=== PATIENT | male | born 1985 | race Caucasian/White ===

== ENCOUNTER 2016-09-29 00:35 | Emergency (ER) | payer SELFPAY ==
--- NOTE | 2016-09-29 01:06 | EDPHY ---
H & P Stated Complaint: HEAVY ETOH DROPPED OFF BY FAMILY MEDICINE PHYSICIAN Source: Police, EMS Exam Limitations: Intoxication - Personal History Current Tetanus/Diphtheria Vaccine: Unsure Current Tetanus Diphtheria and Acellular Pertussis (TDAP): Unsure - Medical/Surgical History Other PMH: UNKNOWN Time Seen by Provider: 09/29/16 00:53 HPI/ROS: CHIEF COMPLAINT: Alcohol intoxication HISTORY OF PRESENT ILLNESS: The patient presents brought in by the supervisor fleshing for alcohol intoxication. Apparently he was [place] and he was hiding in a ditch. When the police went to go find him he drank 375 mL of hard alcohol immediately and has been acting quite intoxicated ever since. REVIEW OF SYSTEMS: Constitutional: No fever, no chills. Eyes:No visual changes. ENT: No sore throat. Respiratory: No cough, no shortness of breath. Cardiac: No chest pain. Gastrointestinal: No abdominal pain, vomiting or diarrhea. Genitourinary: No hematuria. Musculoskeletal: No back pain. Skin: No rashes. Neurological: No headache. PAST MEDICAL HISTORY: None PAST SURGICAL HISTORY: None SOCIAL HISTORY: Alcohol use PHYSICAL EXAM: General Appearance: Alert, well hydrated, appropriate, and non-toxic appearing. Head: Atraumatic without scalp tenderness or obvious injury Eyes: Pupils equal, round, reactive to light, no injection. Ears: Clear bilaterally, no perforation, normal landmarks Nose: Atraumatic, no rhinorrhea, clear. Throat: mucus membranes moist. Neck: Supple, non-tender, no lymphadenopathy. Respiratory: No retractions, no distress, no wheezes, and no accessory muscle use. Lungs are clear to auscultation bilaterally. Cardiovascular: Regular rate and rhythm, no murmurs, rubs, or gallops. Gastrointestinal: Abdomen is soft, non-tender, non-distended Musculoskeletal: Normal active ROM of all extremities, atraumatic. Neurological: Alert, appropriate, and interactive. Moves all extremities equally. Skin: No rashes, good turgor, no nodules on palpation. MEDICAL DECISION MAKING: I serially examined this patient since the patient's arrival here in the emergency department. The patient continues to become more and more sober with each examination. I serially questioned the patient and the patient's story given initially has not changed. The patient still denies any trauma, any head injury, and any illicit drug use. At this point, the patient is walking the department freely and is clinically sober. We're discharging the patient to the [facility] in stable condition. (Emma Garner) Constitutional: Initial Vital Signs Temperature (C) 36.5 C 09/29/16 00:35 Heart Rate 84 09/29/16 00:35 Respiratory Rate 18 09/29/16 00:35 Blood Pressure 131/91 H 09/29/16 00:35 O2 Sat (%) 89 L 09/29/16 00:35 O2 Delivery Mode Room Air O2 (L/minute) 2 Allergies/Adverse Reactions: Unable to Assess Allergy (Unverified 09/29/16 00:51) Home Medications: Medication Instructions Recorded Unobtainable 09/29/16 Medical Decision Making ED Course/Re-evaluation: The patient became agitated while in the emergency room, intermittently yelling and screaming, moving about in the gurney with concern that he may fall out of bed. He was given Versed 5 mg IM for this. He was able to sleep afterwards. We attempted to ambulate him at about 6:00 a.m. he was unable to. He was able to go to the bathroom, however needed assistance. He will be continually observed. (Emma Garner) 9:00 a.m.-the patient is awake and is able to walk with a steady gait. He is on an [facility] hold and will be transferred to the [facility]. (Anni Butts) Differential Diagnosis: This is a 31-year-old man who [place], apparently downed more alcohol as police approached him. He is now quite intoxicated though denies any medical complaints. Differential diagnosis includes alcohol intoxication, polysubstance abuse, less likely closed head injury given no signs of trauma. (Emma Garner) - Data Points Medications Given: Discontinued Medications Midazolam HCl (Versed) 5 mg IM EDNOW ONE Stop: 09/29/16 01:26 Last Admin: 09/29/16 01:26 Dose: 5 mg Departure - Departure Disposition: Home, Routine, Self-Care Clinical Impression: Alcoholic intoxication Qualifiers: Complication of substance-induced condition: with delirium Qualified Code(s): F10.121 - Alcohol abuse with intoxication delirium Condition: Good Instructions: Alcohol Intoxication (ED) Additional Instructions: Please return to the emergency room if you are worse in any way. Referrals: [facility] 24 Hours [Outside] - As per Instructions
[2016-09-29] MEDS ORDERED: MIDAZOLAM 2 MG/2 ML VIAL ONE (01:19)
[2016-09-29] MEDS ORDERED: MIDAZOLAM 2 MG/2 ML VIAL IM ONE (01:25)
[2016-09-29 09:10] VITALS: BP 108/67; PULSE 89; RESP 16; TEMP 97.9; O2SAT 92
== END 2016-09-29 10:00 | disposition home or self-care (01) ==
DX: F10.121 Alcohol abuse with intoxication delirium (principal)
CPT/HCPCS: J2250

== ENCOUNTER 2016-11-02 13:12 | Inpatient (IN) | payer MEDICAID, OTHER ==
--- NOTE | 2016-11-02 13:21 | EDPHY ---
H & P HPI/ROS: CHIEF COMPLAINT: Shortness of breath, cough. HISTORY OF PRESENT ILLNESS: The patient is a 31-year-old male who presents with shortness of breath over the last few days that worsened this morning. This morning he developed a cough with an episode of hemoptysis. He admits low- grade fever. He denies chest pain, abdominal pain, vomiting, diarrhea. He had blood work taken at the detention that showed an elevated d-dimer. He has been on Keflex for generalized scabbing/skin sores and was also given Levaquin today. He is referred to the emergency department for further evaluation. REVIEW OF SYSTEMS: A ten point review of systems was performed and is negative with the exception of the items mentioned in the HPI. Source: Patient Exam Limitations: No limitations - Medical/Surgical History PMH: Denies. Other PMH: UNKNOWN - Social History Smoking Status: Heavy smoker Alcohol Use: Other (History of alcohol abuse with no alcohol for the past 10 days) Additional Social History: 1. Smokes a pack of cigarettes per day. 2. Alcohol abuse. 3. He is currently incarcerated. - Physical Exam Exam: General Appearance: Alert. Vital signs reviewed. Heart rate 117. Oxygen saturation 89% on 4 L nasal cannula. Eyes: Pupils equal and round, no conjunctival injection, no discharge. Anicteric. ENT, Mouth: Mucous membranes are moist, no oropharyngeal erythema or edema. Neck: No lymphadenopathy, supple. Respiratory: Lungs are clear to auscultation; no wheezes, rales, or rhonchi. Cardiovascular: tachycardic; no murmur, rub, or gallop. Gastrointestinal: Abdomen is soft and nontender, no masses or organomegaly, bowel sounds normal. Skin: Warm and dry. Erythematous circular lesions with central scabbing on back , neck, both legs and both arms. No drainage. No fluctuance. Back: Nontender to palpation over the thoracolumbar spine. No CVAT. Extremities: No lower extremity edema, no calf tenderness or swelling. Neurological: Alert and oriented. Moving all four extremities easily and equally. Psychiatric: Normal affect. Constitutional: Initial Vital Signs Temperature (C) 37.2 C 11/02/16 13:23 Heart Rate 112 H 11/02/16 13:23 Respiratory Rate 19 11/02/16 13:23 Blood Pressure 145/113 H 11/02/16 13:23 O2 Sat (%) 89 L 11/02/16 13:23 O2 Delivery Mode Room Air O2 (L/minute) 6 Allergies/Adverse Reactions: Penicillins Allergy (Verified 11/02/16 13:22) Home Medications: Medication Instructions Recorded Cephalexin [Keflex (*)] 500 mg PO QID 11/02/16 Ibuprofen [Motrin (*)] 800 mg PO BID PRN 11/02/16 levOFLOXACIN [levAQUIN (*)] 500 mg PO DAILY 11/02/16 Medical Decision Making - Diagnostics Imaging: Imaging Impressions Chest/Thorax CTA 11/02/16 13:30 Impression: 1. No evidence of thrombopulmonary embolic disease. 2. Multifocal bilateral pneumonia more predominant in both lower lobes. Moderate bilateral pleural effusion. Underlying bronchitis. Results called and discussed with Germaine Montoya at 1435 hours 02 November 2016. ED Course/Re-evaluation: An IV was established and labs ordered. Chest CT ordered. It was my initial impression that he likely had pulmonary embolus with his presentation of tachycardia, hemoptysis, and hypoxia. 1433: CT results conveyed to me by Dr. Amaya as multi-focal pneumonia, no PE. Patient's oxygen saturation is 88% on 6L and he has been placed on Oxymizer. He does not meet sepsis criteria and blood cultures are not indicated. IV Cefepime and Vancomycin ordered. He had received a dose of oral Levaquin earlier today at the detention. I am concerned that his skin lesions might be MRSA. He has been taking Keflex for these lesions. I have chosen to use vancomycin out of concern for MRSA. I am also giving cefepime. He lists a penicillin allergy but has been successfully taking Keflex. He will require hospitalization because of his persistent hypoxia. Differential Diagnosis: Shortness of breath including but not limited to pulmonary infectious process, COPD, asthma, pulmonary embolus and congestive heart failure. - Data Points Laboratory Results: Laboratory Results 11/02/16 13:15 11/02/16 13:15 11/02/16 11/02/16 11/02/16 13:44 13:15 13:15 WBC 8.09 10^3/uL 10^3/uL (3.80-9.50) RBC 3.82 10^6/uL L 10^6/uL (4.40-6.38) Hgb 11.8 g/dL L g/dL (13.7-17.5) POC Hgb 10.5 gm/dL L gm/dL (14.5-17.3) Hct 36.9 % L % (40.0-51.0) POC Hct 31 % L % (42.8-50.6) MCV 96.6 fL fL (81.5-99.8) MCH 30.9 pg pg (27.9-34.1) MCHC 32.0 g/dL L g/dL (32.4-36.7) RDW 14.5 % % (11.5-15.2) Plt Count 304 10^3/uL 10^3/uL (150-400) MPV 9.6 fL fL (8.7-11.7) Neut % (Auto) 59.3 % % (39.3-74.2) Lymph % (Auto) 20.9 % % (15.0-45.0) [place] % (Auto) 14.5 % H % (4.5-13.0) Eos % (Auto) 2.7 % % (0.6-7.6) Baso % (Auto) 1.7 % % (0.3-1.7) Nucleat RBC Rel Count 0.0 % % (0.0-0.2) Absolute Neuts (auto) 4.80 10^3/uL 10^3/uL (1.70-6.50) Absolute Lymphs (auto) 1.69 10^3/uL 10^3/uL (1.00-3.00) Absolute Monos (auto) 1.17 10^3/uL H 10^3/uL (0.30-0.80) Absolute Eos (auto) 0.22 10^3/uL 10^3/uL (0.03-0.40) Absolute Basos (auto) 0.14 10^3/uL H 10^3/uL (0.02-0.10) Absolute Nucleated RBC 0.00 10^3/uL 10^3/uL (0-0.01) Immature Gran % 0.9 % % (0.0-1.1) Immature Gran # 0.07 10^3/uL 10^3/uL (0.00-0.10) POC Sodium 149 mEq/L H mEq/L (134-144) Sodium 145 mEq/L H mEq/L (134-144) POC Potassium 3.8 mEq/L mEq/L (3.3-5.0) Potassium 4.7 mEq/L mEq/L (3.5-5.2) POC Chloride 114 mEq/L H mEq/L (96-108) Chloride 112 mEq/L H mEq/L (97-110) Carbon Dioxide 25 mEq/l mEq/l (22-31) Anion Gap 8 mEq/L mEq/L (8-16) POC BUN 14 mg/dL mg/dL (7-23) BUN 14 mg/dL mg/dL (7-23) Creatinine 0.9 mg/dL mg/dL (0.7-1.3) POC Creatinine 0.7 mg/dL L mg/dL (0.8-1.5) Estimated GFR > 60 Glucose 91 mg/dL mg/dL (70-100) POC Glucose 78 mg/dL mg/dL (70-100) Calcium 8.3 mg/dL L mg/dL (8.5-10.4) Medications Given: Discontinued Medications Albuterol/Ipratropium (Duoneb) 3 ml IH EDNOW ONE Stop: 11/02/16 14:47 Last Admin: 11/02/16 15:10 Dose: 3 ml Vancomycin/Sodium Chloride (Vancomycin 1 Gm (Premix)) 250 mls @ 250 mls/hr IV EDNOW ONE PRN Reason: Protocol Stop: 11/02/16 15:43 Last Admin: 11/02/16 15:10 Dose: 250 mls Point of Care Test Results: 11/02/16 13:44 POC Sodium 149 H POC Potassium 3.8 POC Chloride 114 H POC BUN 14 POC Creatinine 0.7 L POC Glucose 78 Departure - Departure Disposition: [facility] Acute Clinical Impression: Pneumonia Qualifiers: Pneumonia type: due to unspecified organism Laterality: bilateral Lung location : unspecified part of lung Qualified Code(s): J18.9 - Pneumonia, unspecified organism Condition: Fair Report Scribed for: Germaine Montoya Report Scribed by: Ishmael Monroy Date of Report: 11/02/16 Time of Report: 13:30 Physician Review and Approval Statement: 11/02/16 13:21 Portions of this note were transcribed by the phlebotomist medical lab assistant. I, Dr. Germaine Montoya, personally performed the history, physical exam, and medical decision- making; and confirmed the accuracy of the information in the transcribed note.
[2016-11-02 13:35] LABS: % IMMATURE GRANULYOCYTES 0.9 % (0.0-1.1); ABSOLUTE IMMATURE GRANULOCYTES 0.07 10^3/uL (0.00-0.10); ADD DIFF? NO; ADD MORPH? NO; ADD SCAN? NO; ATYPICAL LYMPHOCYTE FLAG 20 (0-99); FRAGMENT RBC FLAG 0 (0-99); HEMATOCRIT 36.9 % (40.0-51.0); HEMOGLOBIN 11.8 g/dL (13.7-17.5); LEFT SHIFT FLG 0 (0-99); LIPEMIA HEMOLYSIS FLAG 80 (0-99); MEAN CELL HEMOGLOBIN 30.9 pg (27.9-34.1); MEAN CELL VOLUME 96.6 fL (81.5-99.8); MEAN PLATELET VOLUME 9.6 fL (8.7-11.7); PLATELET CLUMPS FLAG 10 (0-99); PLATELET COUNT 304 10^3/uL (150-400); RED BLOOD CELL COUNT 3.82 10^6/uL (4.40-6.38); RED CELL DISTRIBUTION WIDTH 14.5 % (11.5-15.2)
[2016-11-02] MEDS ORDERED: IOPAMIDOL (ISOVUE 370) 100 ML BTL IV ONE (13:56)
[2016-11-02 14:00] LABS: ANION GAP 8 mEq/L (8-16); CALCIUM 8.3 mg/dL (8.5-10.4); CARBON DIOXIDE 25 mEq/l (22-31); CHLORIDE 112 mEq/L (97-110); CREATININE 0.9 mg/dL (0.7-1.3); GLOMERULAR FILTRATION RATE > 60; GLUCOSE 91 mg/dL (70-100); POTASSIUM 4.7 mEq/L (3.5-5.2); SODIUM 145 mEq/L (134-144)
[2016-11-02] MEDS ORDERED: CEFEPIME HCL 1 GM in D5W 50 ML IV ONE (14:44)
[2016-11-02] MEDS ORDERED: VANCOMYCIN HCL/NORMAL SALINE 250 ML IV ONE (14:44)
[2016-11-02] MEDS ORDERED: IPRATROPIUM/ALBUTEROL 3 ML DEYVIAL IH ONE (14:46)
[2016-11-02] MEDS ORDERED: ALBUTEROL 60 PUFFS/8 GM MDI IH PRN (15:08)
[2016-11-02] MEDS ORDERED: ONDANSETRON DISINTEGRATING 4 MG TAB PO PRN (15:08)
[2016-11-02] MEDS ORDERED: NS 1,000 ML IV ONE ×2 (15:08→17:42)
[2016-11-02] MEDS ORDERED: AZITHROMYCIN IV 500 MG in D5W 250 ML IV SCH (15:30)
--- NOTE | 2016-11-02 16:16 | GHP ---
[f rep st] HISTORY AND PHYSICAL DATE OF ADMISSION: 11/02/2016 CHIEF COMPLAINT: Shortness of breath. HISTORY OF PRESENT ILLNESS: A 31-year-old male who has been incarcerated for the last 10 days who notes severe shortness of breath that has been progressive over the course of the preceding 72 hours. The patient reports that his baseline activity level is quite active with no limitations secondary to respiratory symptoms or chest pain. The patient noted 3 days ago in his cell feeling short of breath with little to no activity. This sensation did progress. He reports some cough that is productive intermittently of sputum. Then, the day of presentation, patient coughed up a lot of what he described as rosi blood, and decided to present for evaluation. He does endorse subjective fevers and chills. Denies any nausea or vomiting. Denies any diarrhea or changes in his bowel habits. Denies any dysuria, hematuria, lower extremity edema or known sick contacts. He does report he has a roommate who has been sticking a bar of soap in his sock and banging it against the wall as an ad hoc air freshener, and was not sure of the inhalation of soap particles could have contributed. PAST MEDICAL HISTORY: Alcohol abuse, severe. The patient has been sober for the last 10 days. SOCIAL HISTORY: Patient is currently incarcerated secondary to alcohol-related charges. Reports that he would drink multiple pints of whiskey a day when able. He smokes a pack of cigarettes a day. Denies any illicit drugs. Denies any history of IV drugs or known HIV risk factors. FAMILY HISTORY: Positive for Parkinson's in his grandfather and alcoholism in the majority of his family members. ADVANCED DIRECTIVES: Patient is full cor, full tube. REVIEW OF SYSTEMS: A 10-point review of systems is negative with the exception of that reported in the HPI. PHYSICAL EXAMINATION: VITAL SIGNS: Blood pressure 145/113, heart rate 112, respiratory rate 19, 89% on room air, 37.2. GENERAL: This is a healthy- appearing young male, sitting comfortably in bed. HEENT: Notable for moist mucous membranes. Eye exam is negative for any icterus. CARDIAC: Patient is regular rate and rhythm. PULMONARY: Has adequate respiratory effort and has rhonchi bilaterally, left mid lung field than right base. No wheezing is appreciated. GASTROINTESTINAL: Positive bowel sounds. ABDOMEN: Nontender in all 4 quadrants. MUSCULOSKELETAL: Negative for any lower extremity edema. SKIN: Patient is noted to have scattered pustular lesions, which appear to be follicle related. He reports these are new. He has been on antibiotics. PSYCHIATRIC: He is pleasant and cooperative on interview and examination. NEUROLOGIC: He is alert and oriented x3. DATA: White count 8.09, hematocrit 36.9, platelet count of 304. Sodium is 145 , creatinine 0.9, BUN 14, calcium 8.3. CTA of the chest, which I personally reviewed and interpreted, shows no thromboembolic disease. Multifocal bilateral pneumonia are noted in the lower lobes. ASSESSMENT AND PLAN: This is a 31-year-old male presenting with shortness of breath. 1. Presumed Community-acquired pneumonia. The patient is currently incarcerated, has no specific history concerning for immunosuppression, presenting with hypoxia, cough, and mild hemoptysis. Blood cultures have been sent from the emergency department. Will additionally send influenza and Legionella. Will empirically treat with azithromycin and ceftriaxone. 2. Acute hypoxic respiratory failure. The patient was first presenting with complaints of hemoptysis with concern for pulmonary embolism, which has been ruled out with a CTA. Will proceed with treatment for community-acquired pneumonia, additionally with scheduled DuoNeb and p.r.n. albuterol. 3. Sinus tachycardia. I suspect this is likely related to his acute illness. We will fluid resuscitate with normal saline and follow patient's heart rates. He is well outside the window of alcohol withdrawal, and will not place on CIWA protocol at this time. 4. Alcohol abuse. As above, the patient is actively incarcerated, has been away from alcohol consumption for greater than 10 days. There is minimal to no risk of acute withdrawal during this hospital stay. 5. Prophylaxis with Lovenox. 6. Diet: Regular. DISPOSITION: 1. I expect greater than 2 midnights. The patient is presenting quite hypoxic with hemoptysis. Will need IV antibiotics and stabilization prior to returning to the [facility]. 2. I have discussed the case with the emergency room physician. Patient will be triaged to the medical-surgical floor for care. /[id number]/MODL MTDD
[2016-11-02] MEDS: IPRATROPIUM/ALBUTEROL 3 ML DEYVIAL IH SCH ×2 (17:44→20:33)
[2016-11-02] MEDS: guaiFENesin/CODEINE PHOS 10 ML UDCUP PO PRN (19:30)
[2016-11-02] MEDS: ONDANSETRON 4 MG/2 ML VIAL IVP PRN (19:36)
[2016-11-02] MEDS: guaiFENesin 600 MG TAB.ER PO SCH (20:26)
[2016-11-02] MEDS: BENZONATATE 100 MG CAP PO PRN (20:59)
[2016-11-02] MEDS: ACETAMINOPHEN 325 MG TAB PO PRN (20:59)
[2016-11-02] MEDS: LORazepam 0.5 MG TAB PO PRN (20:59)
--- NOTE | 2016-11-02 22:26 | HOSPPROG ---
Hospitalist Progress Note Assessment/Plan: Called bedside for worsening oxygen saturations Patient admitted earlier with CAP on 2L -> 10L with persistent hemoptysis, worsening tachycardia HR 130's- SBP stable 130/60 Bilateral rhonchi and patient tachypneic on exam - will send AFB sputums, add HIV - transferring to ICU for higher level respiratory care - patient desires intubation if necessary - may need bronchoscopy to eval for DAH, pneumonitis (to aerosolized soap) and infectious etiologies - cont IVF fluids -continue vanc,cefepime, azithromycin I discussed the case with Dr. Purcell from pulmonary - we will continue with current treatment course and transfer to SDU > 30 minutes critical care time spent transferring and coordinating care Objective: Vital Signs Temp Pulse Resp BP Pulse Ox 37.1 C 132 H 20 139/100 H 90 L 11/02/16 20:18 11/02/16 20:18 11/02/16 20:18 11/02/16 20:18 11/02/16 20:18 11/01/16 11/02/16 11/03/16 05:59 05:59 05:59 Intake Total 581 Balance 581 ICD10 Worksheet Patient Problems: Problems Problem Status Onset Pneumonia Acute
[2016-11-02] MEDS ORDERED: NS 1,000 ML IV SCH (22:45)
[2016-11-02 23:24] LABS: % IMMATURE GRANULYOCYTES 0.7 % (0.0-1.1); ABSOLUTE IMMATURE GRANULOCYTES 0.08 10^3/uL (0.00-0.10); ADD DIFF? NO; ADD MORPH? NO; ADD SCAN? NO; ATYPICAL LYMPHOCYTE FLAG 10 (0-99); FRAGMENT RBC FLAG 0 (0-99); HEMATOCRIT 34.9 % (40.0-51.0); HEMOGLOBIN 11.2 g/dL (13.7-17.5); LEFT SHIFT FLG 0 (0-99); LIPEMIA HEMOLYSIS FLAG 80 (0-99); MEAN CELL HEMOGLOBIN 30.9 pg (27.9-34.1); MEAN CELL HEMOGLOBIN CONCENTR. 32.1 g/dL (32.4-36.7); MEAN CELL VOLUME 96.4 fL (81.5-99.8); MEAN PLATELET VOLUME 9.4 fL (8.7-11.7); PLATELET CLUMPS FLAG 10 (0-99); PLATELET COUNT 302 10^3/uL (150-400); RED BLOOD CELL COUNT 3.62 10^6/uL (4.40-6.38); RED CELL DISTRIBUTION WIDTH 14.6 % (11.5-15.2)
[2016-11-02 23:35] LABS: INR 1.15 (0.83-1.16); PROTIME(PATIENT) 14.7 SEC (12.0-15.0)
[2016-11-02 23:36] LABS: APTT 27.4 SEC (23.0-38.0)
[2016-11-03] MEDS: VANCOMYCIN 1.25 GM in D5W 250 ML IV SCH ×3 (00:09→23:25)
[2016-11-03] MEDS: CEFEPIME HCL 2 GM in D5W 100 ML IV SCH ×3 (01:05→17:13)
[2016-11-03] MEDS: LORazepam 0.5 MG TAB PO PRN ×4 (02:09→20:38)
[2016-11-03] MEDS: guaiFENesin/CODEINE PHOS 10 ML UDCUP PO PRN (03:14)
[2016-11-03 03:56] LABS: BASE EXCESS -5.8 mEq/L (-2.5-2.5); BICARBONATE 19 mEq/L (22-26); MEASURED OXYGEN SATURATION 91 % (92-95); PCO2 35 mmHg (34-38); PO2 70 mmHg (65-75); TCO2 20 mEq/L (23-27)
[2016-11-03 03:57] LABS: BIPAP YES; EXP PRESSURE 8; INSP PRESSURE 15; O2 CONCENTRATIION 60 % (0-100); P/F RATIO 117 RATIO
[2016-11-03 04:22] LABS: % IMMATURE GRANULYOCYTES 0.5 % (0.0-1.1); ABSOLUTE IMMATURE GRANULOCYTES 0.07 10^3/uL (0.00-0.10); ADD DIFF? NO; ADD MORPH? NO; ADD SCAN? NO; ATYPICAL LYMPHOCYTE FLAG 0 (0-99); FRAGMENT RBC FLAG 0 (0-99); HEMATOCRIT 37.2 % (40.0-51.0); HEMOGLOBIN 11.9 g/dL (13.7-17.5); LEFT SHIFT FLG 0 (0-99); LIPEMIA HEMOLYSIS FLAG 80 (0-99); MEAN CELL HEMOGLOBIN 31.1 pg (27.9-34.1); MEAN CELL VOLUME 97.1 fL (81.5-99.8); MEAN PLATELET VOLUME 9.4 fL (8.7-11.7); PLATELET CLUMPS FLAG 20 (0-99); PLATELET COUNT 318 10^3/uL (150-400); RED BLOOD CELL COUNT 3.83 10^6/uL (4.40-6.38); RED CELL DISTRIBUTION WIDTH 14.6 % (11.5-15.2)
[2016-11-03 04:35] LABS: ANION GAP 9 mEq/L (8-16); CALCIUM 7.7 mg/dL (8.5-10.4); CARBON DIOXIDE 20 mEq/l (22-31); CHLORIDE 115 mEq/L (97-110); CREATININE 0.8 mg/dL (0.7-1.3); GLOMERULAR FILTRATION RATE > 60; GLUCOSE 94 mg/dL (70-100); POTASSIUM 4.6 mEq/L (3.5-5.2); SODIUM 144 mEq/L (134-144)
[2016-11-03] MEDS: IPRATROPIUM/ALBUTEROL 3 ML DEYVIAL IH SCH ×4 (05:24→21:01)
[2016-11-03] MEDS: guaiFENesin 600 MG TAB.ER PO SCH ×2 (08:18→20:38)
[2016-11-03] MEDS: AZITHROMYCIN IV 500 MG in D5W 250 ML IV SCH (08:18)
[2016-11-03] MEDS: ENOXAPARIN 40 MG/0.4 ML SYR SC SCH (08:18)
[2016-11-03] MEDS ORDERED: methylPREDNISolone SOD SUCC 125 MG/2 ML VIAL IVP ONE (11:24)
[2016-11-03 12:19] LABS: HEMATOCRIT 37.5 % (40.0-51.0)
[2016-11-03] MEDS: ONDANSETRON 4 MG/2 ML VIAL IVP PRN (12:19)
[2016-11-03] MEDS: ACETAMINOPHEN 325 MG TAB PO PRN (12:26)
--- NOTE | 2016-11-03 12:29 | GCON ---
[f rep st] CONSULTATION PULMONARY CONSULTATION. DATE OF CONSULTATION: 11/03/2016 REASON FOR CONSULTATION: Bilateral diffuse pneumonia, shortness of breath, hypoxemia. This is asso ciated with hemoptysis. HISTORY: The patient is a 31-year-old gentleman, who has a history of alcoholism and homelessness. He has been in the senior care for the last 10 days. Approximately 3 days ago he began to have cough with gradually increasing shortness of breath. Yesterday his symptoms were increased, and he started br inging up some blood. Colored sputum apparently has also been present. The patient was seen by the nurse at the senior care, and was sent to the hospital for further evaluation. He denies other medical problems. He has no underlying illnesses. He has had a skin rash, primaril y over his lower extremities. He has had no blood in his urine. He has no history of aspiration. He had a roommate in the senior care who was placing a bar of soap in a sock and hitting it against the wal l as a "air freshener." PAST MEDICAL HISTORY: Alcoholism. Obviously, no alcohol over the last 10 days while he has been in senior care. SOCIAL HISTORY: The patient drinks pints of whiskey per day. He smokes half a pack to a pack of ci garettes per day. He denies drug use. FAMILY HISTORY: Positive for alcoholism. REVIEW OF SYSTEMS: Negative, except as mentioned above. He denies heart disease. He denies any ot her exposures. There is no history of thromboembolic disease. ALLERGIES: Drug allergies, penicillins. PHYSICAL EXAMINATION: GENERAL: Reveals a well-appearing young man with mild respiratory distress. He is alternating between a BiPAP mask at 70%, and an oxy mask. VITAL SIGNS: Blood pressure is 14 0/100, heart rate 120 with sinus tachycardia on the monitor. Oxygen saturations are in the high 90s . Respiratory rate is 35. He is afebrile, and has been afebrile since admission, with a maximum te mperature of 37.3. He is bringing up some rick-colored mucus and spitting this into a cup. HEENT: Remarkable for the BiPAP mask being in place. There is no obvious thyromegaly or lymphadenopathy. Mucous membranes are moist. There was no jugular venous distention. CHEST: Reveals decreased br eath sounds and air exchange bilaterally with bilateral rales, and some central bronchial congestion with rhonchi with cough. There may be a few expiratory wheezes but he is not "tight." He is using accessory muscles mildly. HEART: Tachycardic. There is a soft systolic murmur, no obvious gallop s. P2 is difficult to appreciate. ABDOMEN: Soft, nontender. Bowel sounds are present. EXTREMITI ES: Unremarkable for edema, cords, or tenderness. SKIN: Over the lower extremities is remarkable for a now healed, dried area of rash or excoriation bilaterally, right greater than left. There is no associated erythema or cellulitis. NEUROLOGIC: Intact. He moves all extremities equally. Cogn ition appears to be intact. LABORATORY DATA: A CTA on admission showed no evidence of pulmonary embolic disease. There is bila teral patchy consolidation in the lower lobes primarily on that scan, associated with small to moder ate pleural effusions. Bronchial wall thickening is noted. There are some reactive-appearing lymph nodes centrally. A chest x-ray is consistent with the above, but appears to have progressed since admission somewhat. Today's film shows poor inspiratory efforts. Laboratory: White blood cell count is 12,900, hematocrit 37, platelets 318,000. PT and PTT were no rmal on admission. Venous lactate on admission was 1.9. Arterial blood gas today shows a pH of 7.3 5, pCO2 of 35, and a pO2 of 70, with 91% saturation on 60% BiPAP. Sodium is 144, potassium 4.6, CO2 of 20, BUN 13 with a creatinine of 0.8. Glucose is 94, calcium 7.7. Influenza A/B by DFA is negat gael. HIV is negative. Urine Legionella is pending. Sputum culture has been obtained. White blood cells, epithelial cells, gram-positive cocci and gram-negative rods are all present. A mycobacteri al smear was obtained, and is pending. Blood cultures are pending. ASSESSMENT: 1. Bilateral pneumonia. This is associated with acute respiratory failure, hypoxemia, tachypnea, a nd is associated with hemoptysis. Radiologic studies show a patchy, bilateral nodular consolidative infiltrate that is somewhat atypical. Community-acquired pneumonia is most likely, with the bloody sputum/hemoptysis. Pneumococcus is certainly possible. A streptococcal urinary antigen will be or dered. Other etiologies of diffuse pulmonary infiltrates associated with hemoptysis need to be cons idered, but are less likely. These would include Jayne's, Goodpasture's, lupus, etceteras. Serol ogies will be ordered. A urinalysis will be ordered. He is currently on broad-spectrum antibiotics . These include azithromycin, cefepime, and vancomycin. He is getting bronchodilator nebulized xiomy atments. He is being ruled out for tuberculosis. This seems unlikely. Steroids may be of benefit. My feeling is that at present he is too sick, tachypneic, and hypoxemic to perform a bronchoscopy safely. If he ends up progressing and needing to be intubated, this can be done at that time. If h e continues to progress and tissue evaluation is needed lung biopsies by VATS would probably be need ed, as opposed to transbronchial biopsies. 2. History of alcoholism. He has not had any alcohol for 10 days. He is at no risk for withdrawal at this point in time. 3. History of tobacco abuse. 4. Metabolic: No significant issues identified. 5. Deep venous thrombosis prophylaxis: On enoxaparin. 6. Gastrointestinal prophylaxis: Not necessarily needed as he is eating, however, I anticipate ora l intake to be limited, because steroids will be initiated and he has a history of alcoholism Pepcid will be started. PLAN/RECOMMENDATIONS: Please see the comments above. He will be supported in the intensive care un it, respiratory status will be followed closely. Chest x-ray and blood gases will be followed, mikey g with routine laboratory values. If he deteriorates, he would require intubation. Bronchoscopy wo uld be done at that time. Current antibiotics will be continued. Bronchodilator therapy will be co ntinued. Sputum culture and AFB smears will be awaited. Steroids will be added. Multiple serologi es for diagnoses other than pneumonia will be obtained. Further plans and recommendations will be rachel grant based on his progress over the next 12 to 24 hours. /[id number]/MODL
--- NOTE | 2016-11-03 15:58 | HOSPPROG ---
Hospitalist Progress Note Assessment/Plan: * Acute respiratory failure - high risk for needing intubation * Bilateral PNA with hemoptysis -Cefepime, azithro, IV Vanco -r/o TB - AFB pending * Tobacco dependence - patch * Etoh dependence -no Etoh for 10 days as in prison Subjective: very sob Objective: Vital Signs Temp Pulse Resp BP Pulse Ox 36.9 C 118 H 31 H 122/94 H 87 L 11/03/16 08:00 11/03/16 14:25 11/03/16 14:25 11/03/16 14:25 11/03/16 14:25 Microbiology 11/03/16 02:03 - Final Sputum, Expectorated Laboratory Results 11/03/16 12:06 11/03/16 04:15 11/02/16 11/03/16 11/04/16 05:59 05:59 05:59 Intake Total 1831 Output Total 500 Balance 1331 PT 14.7 SEC (12.0-15.0) 11/02/16 23:15 INR 1.15 (0.83-1.16) 11/02/16 23:15 d/w Austyn Purcell - also ruling out autoimmune/ILD CXR viewed, my personal interpretation is - bilateral infiltrates - severe - Physical Exam Constitutional: uncomfortable, No no apparent distress (resp distress), No chronically ill appearing, No obese Cardiovascular: no murmur, rub, or gallop, tachycardia, No JVD, No edema Respiratory: inspiratory crackles, respiratory distress, No expiratory wheeze, No rhonchi Gastrointestinal: normoactive bowel sounds, soft, non-tender abdomen, no palpable masses Skin: no rashes or abrasions, no fluctuance, no induration Neurologic: AAOx3, sensation intact bilaterally Psychiatric: interacting appropriately, not anxious, not encephalopathic, thought process linear ICD10 Worksheet Patient Problems: Problems Problem Status Onset Pneumonia Acute
[2016-11-03 16:09] LABS: COLOR YELLOW; LEUKOCYTE ESTERASE,URINE NEGATIVE (NEGATIVE); NITRITE,URINE NEGATIVE (NEGATIVE)
[2016-11-03 16:18] LABS: BACTERIA TRACE /hpf (NONE SEEN); MUCUS 2+ /lpf (NONE-1+)
[2016-11-03 16:22] LABS: HYALINE CASTS >182 /lpf (0-1)
[2016-11-03] MEDS: methylPREDNISolone SOD SUCC 40 MG/ML VIAL IVP SCH (21:10)
[2016-11-04] MEDS: CEFEPIME HCL 2 GM in D5W 100 ML IV SCH ×4 (00:55→23:59)
[2016-11-04] MEDS: LORazepam 0.5 MG TAB PO PRN ×4 (01:11→21:19)
[2016-11-04 04:46] LABS: % IMMATURE GRANULYOCYTES 0.5 % (0.0-1.1); ABSOLUTE IMMATURE GRANULOCYTES 0.08 10^3/uL (0.00-0.10); ADD DIFF? NO; ADD MORPH? NO; ADD SCAN? NO; ATYPICAL LYMPHOCYTE FLAG 0 (0-99); FRAGMENT RBC FLAG 0 (0-99); HEMATOCRIT 33.8 % (40.0-51.0); HEMOGLOBIN 11.1 g/dL (13.7-17.5); LEFT SHIFT FLG 10 (0-99); LIPEMIA HEMOLYSIS FLAG 80 (0-99); MEAN CELL HEMOGLOBIN 30.9 pg (27.9-34.1); MEAN CELL HEMOGLOBIN CONCENTR. 32.8 g/dL (32.4-36.7); MEAN CELL VOLUME 94.2 fL (81.5-99.8); MEAN PLATELET VOLUME 9.9 fL (8.7-11.7); PLATELET CLUMPS FLAG 0 (0-99); PLATELET COUNT 326 10^3/uL (150-400); RED BLOOD CELL COUNT 3.59 10^6/uL (4.40-6.38)
[2016-11-04 04:52] LABS: ANION GAP 6 mEq/L (8-16); CALCIUM 8.1 mg/dL (8.5-10.4); CARBON DIOXIDE 20 mEq/l (22-31); CHLORIDE 112 mEq/L (97-110); CREATININE 0.7 mg/dL (0.7-1.3); GLOMERULAR FILTRATION RATE > 60; GLUCOSE 132 mg/dL (70-100); POTASSIUM 4.8 mEq/L (3.5-5.2); SODIUM 138 mEq/L (134-144)
[2016-11-04] MEDS: IPRATROPIUM/ALBUTEROL 3 ML DEYVIAL IH SCH ×4 (05:24→21:23)
[2016-11-04 05:27] LABS: BASE EXCESS -2.8 mEq/L (-2.5-2.5); BICARBONATE 21 mEq/L (22-26); BIPAP YES; EXP PRESSURE 5; INSP PRESSURE 15; MEASURED OXYGEN SATURATION 96 % (92-95); PCO2 35 mmHg (34-38); PO2 85 mmHg (65-75); TCO2 22 mEq/L (23-27)
[2016-11-04 05:28] LABS: O2 CONCENTRATIION 80 % (0-100); P/F RATIO 106 RATIO
[2016-11-04] MEDS: guaiFENesin 600 MG TAB.ER PO SCH ×2 (08:42→21:19)
[2016-11-04] MEDS: ENOXAPARIN 40 MG/0.4 ML SYR SC SCH (08:42)
[2016-11-04] MEDS: methylPREDNISolone SOD SUCC 40 MG/ML VIAL IVP SCH ×2 (08:42→21:20)
[2016-11-04] MEDS: NICOTINE 21 MG/24 HR PATCH TD SCH (08:54)
[2016-11-04] MEDS: AZITHROMYCIN IV 500 MG in D5W 250 ML IV SCH (09:08)
--- NOTE | 2016-11-04 10:11 | GCON ---
[f rep st] CONSULTATION INFECTIOUS DISEASE CONSULT. REFERRING PHYSICIAN: Janet Cole MD REASON FOR CONSULT: Assist in management of this 31-year-old male with pneumonia and hemoptysis. HISTORY OF PRESENT ILLNESS: Please note, the history was obtained from the patient and the chart. The patient is a 31-year-old gentleman, whose previous medical history is notable for the followin. Tobacco use disorder: The patient states that he has been a smoker, less than 1 pack per day for the past 10 years. 2. Alcohol abuse, severe. The patient states he has been an alcoholic for the past 10 years as well, and drinks whiskey. He states that alcoholism runs in his family. 3. History of pustular pruritic skin lesions on his scalp, hands, elbow, and pretibial areas as well as his feet, that started perhaps 10 days to 2 weeks ago. The patient states that these lesions were extremely pruritic. He reports presenting to our emergency room for this rash, but I can find no history of this in our computer system. He was given what sounds to me like Keflex 500 mg 4 times daily, and was on this up to the day of admission. The patient states that he has been staying at his grandmother's house intermittently, and he is concerned that there are bed bugs at her home. He has never had a rash like this before. Of note, the patient had no lesions in his mouth or genitourinary area. Regarding his present issues, the patient states that he has been incarcerated on an off 5 times over the past several months. The patient has been incarcerated for approximately 10 days prior to admission. He was feeling like his usual self other than the skin lesions, for which he was taking antibiotics , and was doing reasonably well until 3 days prior to admission when he developed a fairly sudden onset of shortness of breath, cough, and sputum that was blood-tinged. On the day of admission the patient reported coughing up a fair amount of "rosi blood" and he was brought in by the half-way to our emergency department for further evaluation and treatment. There is no report or history of aspiration. Of note, the patient was on Keflex prior to admission and was also given a dose of levofloxacin, therefore the patient was on antibiotics when blood cultures were drawn. In our emergency department the patient had a temperature of 37.2, with an oxygen saturation of 89%, blood pressure 145/113. A CT of the chest with contrast showed no evidence of PE. He was found to have "multifocal bilateral pneumonia, more prominent in the lower lobes, with moderate bilateral pleural effusions." I reviewed the CT scan with Dr. Joe this morning. There is no evidence of cavitary disease or hilar adenopathy per se, to suggest a necrotizing process such as pneumonia, lung abscess, or other at this time. The patient was admitted and started on ceftriaxone and azithromycin. Unfortunately from a respiratory standpoint he continued to deteriorate with increasing oxygen requirements. His antibiotics were then modified to vancomycin, cefepime and azithromycin. He is presently on BiPAP. I am now asked to assist in his management. Chest x-rays show progression of pneumonia with worsening left pleural effusion. Of note, the patient was started on Solu- Medrol last evening. His blood pressure has remained stable. In speaking with the patient today, he denies any antecedent weight loss, and states that he has been gaining weight in half-way. He denies drenching night sweats or anorexia. Since he has been short of breath he has had a headache, but no sore throat, no significant nasal congestion. He denies chest pain, or pain with inspiration, although he does feel that his lungs "burn." He denies any abdominal pain, nausea, vomiting, diarrhea, gross hematuria, blood in his stool or black tarry stools. Skin lesions are as outlined above. No pain in his joints, large or small. No visual disturbance, blurred vision or double vision. He has not been confused. PAST MEDICAL HISTORY: Previous medical history is as outlined above. The patient states he received all of his childhood vaccinations. MEDICATIONS: Prior to admission are unclear, but are notable per report of the patient and the core composer machine tender for Keflex 500 mg p.o. four times daily, and the patient also received a dose of levofloxacin. ALLERGIES: Penicillin. The patient states that his throat "swelled up" when he was a child. MEDICATIONS: Include vancomycin 1.25 g IV q.12 hours, Solu-Medrol 40 mg IV q.12 hours, cefepime 2 g IV q.8 hours, azithromycin 500 mg IV daily, DuoNeb, Mucinex, Robitussin, Ativan p.r.n. SOCIAL HISTORY: The patient was born and raised in [place]. The patient was in the [employer] for 4 years, where he was stationed in [place], [place] , and [place], [place], and "all over [place]." He never served overseas, and states that he was discharged honorably in 2009. 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 He has never lived anywhere other than outlined above. Again, he has never lived overseas. No history of contact with anyone with tuberculosis that he is aware of. Unfortunately, the patient since he has been an alcoholic, has been mostly homeless, but has also been living with his grandmother in [place] intermittently. He was living with her for a week, perhaps 2 weeks or 3 weeks prior to admission. Otherwise, the patient states he has been sleeping wherever he can find a place. He has not been in a [facility]. He states that his grandmother lives in a trailer. He states that although there are mice there he has not seen them, he has not seen any droppings, and has not been cleaning out enclosed spaces per se. He has had no other ill contacts. No travel within or outside the [facility], as outlined above. He is intermittently sexually active with women. No history of sexually transmitted infections. His HIV test here was negative. He drinks and smokes as outlined above, but night denies any illicit substances otherwise. He states he has never used intravenous drugs. He does not smoke marijuana. FAMILY HISTORY: Notable for Parkinson's. REVIEW OF SYSTEMS: As outlined above, otherwise 10 systems are reviewed and are negative. Of note, the patient also denies any fevers or shaking chills prior to admission. PHYSICAL EXAM: VITAL SIGNS: T current is 37.1, T-max 37.3, heart rate 112, blood pressure 127/94, 93% on BiPAP at 80% FiO2. GENERAL: A well-nourished, well-developed gentleman lying in bed, mild respiratory distress, with the BiPAP machine on. HEENT: Atraumatic, normocephalic. Pupils equal, round, reactive to light. Extraocular movements are intact. No conjunctival injection , no icterus, no petechiae. No sinus process tenderness or discharge from the nares. Mucous membranes are moist. No oral lesions noted. Dentition in fair repair. NECK: No cervical or supraclavicular adenopathy. Trachea is midline. No thyromegaly or palpable thyroid nodules. CARDIOVASCULAR: Tachycardiac, S1 and S2. No rubs gallops or murmurs audible, although difficult exam secondary to adventitious sounds. LUNGS: Increased respiratory effort. His lungs are notable for no audible breath sounds at the left base. Right lung field is diminished with a few crackles, no please. Left upper lobe is fairly clear, no rubs. ABDOMEN: Soft. No organomegaly or tenderness to palpation. GENITOURINARY: Exam not performed. EXTREMITIES: No clubbing, cyanosis, or edema. No muscle belly tenderness. SKIN: Notable for resolving pustular lesions with some surrounding skin exfoliation. There is some surrounding redness/brawny discoloration of the skin , but no active cellulitis. The pustular component of these lesions has resolved, they continue to be pruritic. He has some lesions at the nape of his neck and on his scalp posteriorly, right elbow, pretibial areas of the lower extremities and feet, but none on his chest, back, or genitourinary area per the patient. He does have some exfoliation of the skin on his right thumb. NEUROLOGIC: He is alert and oriented x3, he is moving all 4 extremities, no focal deficits. LABORATORY DATA: White blood cell count of 17.2 today, up from 12.9 early this morning, although the patient was started on Solu-Medrol last evening. Hematocrit of 34, platelet count of 326, 86% neutrophils. There is no evidence of atypical lymphocytosis, ESR of 48, INR of 1.15, PTT of 27, BUN and creatinine 14/0.7. No liver function tests have been obtained. C-reactive protein of 59.7, Dwain level is pending. Vanco trough last evening was 9.0, vasculitis studies are pending. HIV antibody testing negative, influenza A and B PCR negative. Urine Legionella antigen pending, respiratory viral PCR pending. Urine pneumococcal antigen pending. Microbiologic data: Blood cultures x2 on November 02, 2016 show no growth (please note these were drawn after the patient received a dose of levofloxacin and had been on Keflex). Sputum AFB x1 on November 02, 2016 is negative. Sputum culture yesterday showed 2+ PMN's, 1+ gram-positive cocci, 1+ gram-positive rods, rare gram-negative rods, culture is pending. RADIOGRAPHIC DATA: As outlined above, chest x-ray this morning, that I also reviewed with Dr. Joe, shows worsening bilateral infiltrates particularly in the right upper lobe and left lower lobe with worsening pleural effusion in the left lower lobe. IMPRESSION: 31-year-old homeless alcoholic gentleman with tobacco use disorder, who presents with bilateral pneumonia and history of hemoptysis. Chest CT notable for bilateral infiltrates and worsening left-sided effusion without evidence of cavitary disease or adenopathy. Differential diagnosis includes common pathogens such as pneumococcus, as well as additional pathogens that can cause a necrotizing pneumonia, such as gram-negative organisms, including Pseudomonas , drug resistant pneumococcus, and MRSA in the setting of his homelessness and alcoholism. Notably, the patient is human immunodeficiency virus negative. Fungal pathogens, tuberculosis, and more sinister pathogens such as hantavirus seem unlikely. Atypical pathogens such as Legionellosis are also in the differential. He has no other significant exposure history. Although a vasculitis workup has been initiated, an infectious etiology seems most likely. PLAN: 1. I agree with present antibiotics in the form of Vancomycin, cefepime and azithromycin but will increase vancomycin dose in the setting of pneumonia. Hopefully we will be able to taper antibiotics once the patient shows significant clinical improvement and/or culpable pathogen recovered. 2. Swab nares for MRSA. 3. Add mycoplasma serologies. 4. The patient is presently being ruled out for tuberculosis; I have added on an AFB smear to the patient's sputum culture yesterday, therefore he will only need one additional AFB today. Hopefully we can get him out of airborne precautions in short order. 5. HIV testing has been done and is negative; this was conveyed to the patient. 6. Regarding the skin lesions on his legs and exposed areas, query secondarily infected bed bug bites versus other. These do not seem consistent with a vasculitic process such as palpable purpura , and do not look like metastatic skin lesions from a bloodstream infection, or stigmata of endocarditis. The patient has no genitourinary or oral lesions. No further treatment at this point in time. 7. Urine Legionella antigen pending. 8. Of note, suspect he will need a thoracentesis moving forward in the setting of developing parapneumonic effusion on the left side. 9. Blood cultures are pending, although these are less likely to be helpful in the setting of antecedent antibiotics in the form of levofloxacin as well as Keflex. 10. Respiratory viral PCR pending. Thank you very much for consulting Infectious Diseases. We will continue to follow this patient with you. /[id number]/MODL MTDD
[2016-11-04 10:36] LABS: ALANINE AMINOTRANSFERASE 45 IU/L (21-72); ALBUMIN 2.7 g/dL (3.5-5.0); ALKALINE PHOSPHATASE 68 IU/L (38-126); ASPARTATE AMINOTRANSFERASE 29 IU/L (17-59); BILIRUBIN,TOTAL 0.5 mg/dL (0.1-1.4); BILIRUBIN-CONJUGATED 0.4 mg/dL (0.0-0.5); BILIRUBIN-UNCONJUGATED 0.1 mg/dL (0.0-1.1); TOTAL PROTEIN 6.4 g/dL (6.3-8.2)
[2016-11-04] MEDS: VANCOMYCIN 1.25 GM in D5W 250 ML IV SCH ×2 (10:46→17:15)
--- NOTE | 2016-11-04 12:42 | PDINTPN ---
Construction Executive Progress Note Assessment/Plan: Assessment: Severe bilateral community-acquired pneumonia admitted 11/02, associated with hypoxemia, acute respiratory failure, and hemoptysis. Cultures negative and probably will remain negative as he was on antibiotics prior to his admission. Multiple serologies for causative infections agents and inflammatory etiologies are pending. Arterial blood gas with BiPAP is stable, not worse today. Chest x -ray perhaps slightly worse but clinically he is better. There is an associated increased right-sided effusion, probably parapneumonic. Will tap today. On broad-spectrum antibiotics and empiric steroids. Acute respiratory failure: Secondary to 1. He has been intermittently on BiPAP , now on Vapotherm. Improved today, no longer struggling or complaining of severe dyspnea. History of alcoholism. In skilled nursing for 10 days prior to admission to [facility]. No risk for withdrawal. Remains under police surveillance. History of tobacco abuse: No evidence of COPD or asthma. On bronchodilators. Skin rash: Multiple lesions, mostly dry, without significant erythema or cellulitis. Periodic initially. Has been on Keflex for these as an outpatient. Etiology is unclear. He wonders about bed bugs. I do not believe that they are related to his pulmonary issues. DVT prophylaxis: Enoxaparin GI prophylaxis: Eating Plan: Continue care in the intensive care unit. Continue IV fluids, IV antibiotics, steroids, and bronchodilators. Encourage expectoration. Follow chest x-ray, laboratory, blood gas if needed. Continue present management otherwise. I will have ultrasound denny his pleural effusion on the right. If large enough, will perform thoracentesis today and sent for appropriate studies. All the above discussed with nursing, respiratory therapy, hospitalist, and the ICU multi disciplinary team. 40 minutes of clinic time spent directly with the patient, not including thoracentesis. Subjective: Feels a little bit better today. Coughing up less blood and mucus. No chest pain. Remains short of breath. Was on BiPAP earlier, Vapotherm now Objective: Vital Signs Temp Pulse Resp BP Pulse Ox 37.2 C 119 H 22 H 136/105 H 100 11/04/16 12:00 11/04/16 12:00 11/04/16 12:00 11/04/16 12:00 11/04/16 12:00 Microbiology 11/03/16 02:03 - Final Sputum, Expectorated 11/02/16 23:10 Mycobacterial Smear (ML) - Final Sputum, Expectorated Laboratory Results 11/04/16 04:30 11/04/16 04:30 11/03/16 11/04/16 11/05/16 05:59 05:59 05:59 Intake Total 1831 2082 Output Total 500 800 Balance 1331 1282 PT 14.7 SEC (12.0-15.0) 11/02/16 23:15 INR 1.15 (0.83-1.16) 11/02/16 23:15 Laboratory Tests 11/03/16 11/04/16 11/04/16 17:50 04:30 04:30 pCO2 pO2 ABG pH O2 Concentration % Expiratory Pressure Inspiratory Pressure Mode BiPAP Calcium 8.1 L Total Bilirubin 0.5 AST 29 ALT 45 Albumin 2.7 L Influenza A & B (PCR) NEGATIVE FOR FLU 11/04/16 05:20 pCO2 35 pO2 85 H ABG pH 7.40 O2 Concentration % 80 Expiratory Pressure 5 Inspiratory Pressure 15 Mode BiPAP YES Calcium Total Bilirubin AST ALT Albumin Influenza A & B (PCR) CXR: Similar pattern, perhaps slightly worse. More hypoventilatory changes are present however. Effusion appears to be larger on the right. Physical Exam - Physical Exam General Appearance: alert, no apparent distress (Breathing more comfortably compared to yesterday), thin (Somewhat thin) EENT: PERRL/EOMI, other (Vapotherm in place) Neck: normal inspection (No JVD) Respiratory: decreased breath sounds, rales (Present bilaterally, predominantly at the bases), rhonchi (Present centrally with cough), other (Bronchial sounds present), No wheezing Cardiac/Chest: tachycardia (Sinus, approximately 120) Abdomen: normal bowel sounds, non-tender, soft Male Genitalia: other Skin: warm/dry, rash (Patchy areas of maculopapular dried rash are present without change. No significant cellulitis) Extremities: No pedal edema Neuro/Psych: no motor/sensory deficits, No cognition abnormalities ICD10 Worksheet Patient Problems: Problems Problem Status Onset Pneumonia Acute
--- NOTE | 2016-11-04 15:11 | GPN ---
[f rep st] PROCEDURE NOTE PROCEDURE PERFORMED: Right thoracentesis, therapeutic and diagnostic. DESCRIPTION OF PROCEDURE: The procedure was done in the Intensive Care Unit in the patient's room. Informed consent was obtained from the patient. Appropriate time-out was performed. The patient's pleural effusion was marked by ultrasound prior to performing the procedure. The back was steriliz ed with chlorhexidine. 1% lidocaine was used for local anesthesia. After adequate anesthesia with lidocaine, approximately 15 cc, the thoracentesis catheter was passed via interspace 8/9 posteriorly into the patient's pleural fluid collection. Approximately 1400 mL of clear yellow fluid were alexandru nimesh without difficulty. The patient had no cough, no pleurisy at the end of the procedure. Chest x -ray after the procedure showed good evacuation of fluid from the right side. Underlying pneumonia persists. There is a large left-sided effusion as well. This will be tapped tomorrow. Appropriate studies were requested. IMPRESSION: Successful large-volume right-sided thoracentesis. /[id number]/MODL
--- NOTE | 2016-11-04 15:13 | HOSPPROG ---
Hospitalist Progress Note Assessment/Plan: * Acute respiratory failure - remians high risk * Bilateral PNA with hemoptysis -Cefepime, azithro, IV Vanco -r/o TB - AFB pending * Pleural effusion s/p thoracentesis * Tobacco dependence - patch * Etoh dependence -no Etoh for 10 days as in alf Subjective: SOB better Objective: Vital Signs Temp Pulse Resp BP Pulse Ox 37.2 C 108 H 36 H 121/79 H 96 11/04/16 12:00 11/04/16 14:00 11/04/16 14:00 11/04/16 14:00 11/04/16 14:00 Microbiology 11/03/16 02:03 - Final Sputum, Expectorated 11/02/16 23:10 Mycobacterial Smear (ML) - Final Sputum, Expectorated Laboratory Results 11/04/16 04:30 11/04/16 04:30 11/03/16 11/04/16 11/05/16 05:59 05:59 05:59 Intake Total 1831 2082 Output Total 165 397 3185 Balance 1331 1282 -1400 PT 14.7 SEC (12.0-15.0) 11/02/16 23:15 INR 1.15 (0.83-1.16) 11/02/16 23:15 CXR viewed, my personal interpretation is - bilateral infiltrates with effusion d/w Dr. Austyn Purcell - thoracentesis today - Physical Exam Constitutional: no apparent distress, appears nourished, not in pain Cardiovascular: regular rate and rhythym, no murmur, rub, or gallop Respiratory: inspiratory crackles, respiratory distress, No expiratory wheeze, No rhonchi Gastrointestinal: normoactive bowel sounds, soft, non-tender abdomen, no palpable masses Skin: no rashes or abrasions, no fluctuance, no induration Neurologic: AAOx3, sensation intact bilaterally Psychiatric: interacting appropriately, not anxious, not encephalopathic, thought process linear ICD10 Worksheet Patient Problems: Problems Problem Status Onset Pneumonia Acute
[2016-11-04 15:16] LABS: LD, PLEURAL FLUID 272 IU/L
[2016-11-04 15:16] LABS: ANGIOTENSIN CONVERTING ENZYME 19 U/L (8 - 53)
[2016-11-05] MEDS: VANCOMYCIN 1.25 GM in D5W 250 ML IV SCH ×3 (00:48→16:58)
[2016-11-05] MEDS: LORazepam 0.5 MG TAB PO PRN ×4 (02:17→20:15)
[2016-11-05 05:06] LABS: % IMMATURE GRANULYOCYTES 0.5 % (0.0-1.1); ABSOLUTE IMMATURE GRANULOCYTES 0.06 10^3/uL (0.00-0.10); ADD DIFF? NO; ADD MORPH? NO; ADD SCAN? NO; ATYPICAL LYMPHOCYTE FLAG 0 (0-99); FRAGMENT RBC FLAG 0 (0-99); HEMATOCRIT 28.6 % (40.0-51.0); HEMOGLOBIN 9.1 g/dL (13.7-17.5); LEFT SHIFT FLG 0 (0-99); LIPEMIA HEMOLYSIS FLAG 80 (0-99); MEAN CELL HEMOGLOBIN 30.8 pg (27.9-34.1); MEAN CELL HEMOGLOBIN CONCENTR. 31.8 g/dL (32.4-36.7); MEAN CELL VOLUME 96.9 fL (81.5-99.8); MEAN PLATELET VOLUME 9.8 fL (8.7-11.7); PLATELET CLUMPS FLAG 0 (0-99); PLATELET COUNT 283 10^3/uL (150-400); RED BLOOD CELL COUNT 2.95 10^6/uL (4.40-6.38); RED CELL DISTRIBUTION WIDTH 14.3 % (11.5-15.2)
[2016-11-05 05:19] LABS: ANION GAP 6 mEq/L (8-16); CALCIUM 7.9 mg/dL (8.5-10.4); CARBON DIOXIDE 22 mEq/l (22-31); CHLORIDE 112 mEq/L (97-110); CREATININE 0.6 mg/dL (0.7-1.3); GLOMERULAR FILTRATION RATE > 60; GLUCOSE 131 mg/dL (70-100); POTASSIUM 4.9 mEq/L (3.5-5.2); SODIUM 140 mEq/L (134-144)
[2016-11-05] MEDS: IPRATROPIUM/ALBUTEROL 3 ML DEYVIAL IH SCH ×4 (05:59→21:34)
[2016-11-05] MEDS: methylPREDNISolone SOD SUCC 40 MG/ML VIAL IVP SCH ×2 (08:37→20:17)
[2016-11-05] MEDS: CEFEPIME HCL 2 GM in D5W 100 ML IV SCH ×2 (08:38→17:02)
[2016-11-05] MEDS: guaiFENesin 600 MG TAB.ER PO SCH ×2 (08:40→20:15)
[2016-11-05] MEDS: ENOXAPARIN 40 MG/0.4 ML SYR SC SCH (08:41)
[2016-11-05] MEDS: NICOTINE 21 MG/24 HR PATCH TD SCH (08:48)
[2016-11-05] MEDS: AZITHROMYCIN IV 500 MG in D5W 250 ML IV SCH (09:09)
[2016-11-05] MEDS: ACETAMINOPHEN 325 MG TAB PO PRN (10:46)
--- NOTE | 2016-11-05 11:40 | PCMIDPN ---
Assessment/Plan: 1. Severe bilateral pneumonia in homeless alcoholic host: Clinically, slightly better today. Continue broad spectrum antibiotics in the form of vancomycin, cefepime and azithromycin with concomitant steroids for now. Will likely have thoracentesis on the left side today. No other new recommendations. Vancomycin trough this afternoon. Airborne precautions can be discontinued, and this was conveyed to the nursing staff. As per my consultation, please note that the patient was on antecedent antibiotics prior to blood cultures being drawn (was on levofloxacin and Keflex). Vasculitis studies pending. 2. Skin lesions: Again, query secondarily infected bed bug bites versus other. These appear to be resolving. 11/05/16 11:38 11/05/16 11:40 Subjective: Feels slightly better today. Status post thoracentesis on the right with removal of 1.4 L of fluid. This was transudative in nature. He will likely require a thoracentesis on the left side today given increasing pleural effusion. Patient states he felt markedly better after the thoracentesis yesterday. He continues to cough blood-tinged sputum. Objective: Vancomycin 1.25 g IV q.8 hours day 2. Cefepime 2 g IV q.8 hours day 2. Azithromycin 500 mg IV daily day 3. Afebrile 95% on high-flow 02 Solu-Medrol 40 q.12 Vital Signs Temp Pulse Resp BP Pulse Ox 36.9 C 106 H 18 113/98 H 95 11/05/16 08:00 11/05/16 11:05 11/05/16 11:05 11/05/16 10:00 11/05/16 11:05 Microbiology 11/03/16 02:03 - Final Sputum, Expectorated Sputum Culture - Final 11/04/16 14:00 Gram Stain - Final Thoracic Fluid - Aspirate 11/03/16 02:03 Mycobacterial Smear (ML) - Final Sputum, Expectorated 11/04/16 10:35 Mycobacterial Smear (ML) - Final Sputum, Expectorated Laboratory Results 11/05/16 04:55 11/05/16 04:55 11/04/16 11/05/16 11/06/16 05:59 05:59 05:59 Intake Total 2082 3772 Output Total 800 2600 Balance 1282 1172 ESR 48 MM/HR (0-15) H 11/03/16 12:06 C-Reactive Protein 59.7 mg/L (<10.0) H 11/03/16 12:06 Sputum for AFB x3 are negative. Sputum culture with oral sarmad Multiple other studies pending including respiratory viral PCR, mycoplasma, urine Legionella antigen, vasculitis studies - Physical Exam General Appearance: alert, other (Still fairly tachypneic, but able to speak to me in full sentences. States he is hungry.) EENT: pharynx normal, No pharyngeal erythema, No thrush Respiratory: other (Decreased breath sounds left lung base up to mid lung field. Soft, faint crackles audible left upper lung field, right lung. No wheeze.) Cardiac/Chest: tachycardia, No systolic murmur Abdomen: non-tender, soft Skin: other (Resolving furuncular lesions feet hands and nape of neck) ICD10 Worksheet Patient Problems: Problems Problem Status Onset Pneumonia Acute
--- NOTE | 2016-11-05 11:49 | PDINTPN ---
Accredited Pharmacy Technician Progress Note Assessment/Plan: Assessment: Severe bilateral community-acquired pneumonia admitted 11/02, associated with hypoxemia, acute respiratory failure, and hemoptysis. Cultures negative and probably will remain negative as he was on antibiotics prior to his admission. Multiple serologies for causative infections agents and inflammatory etiologies are pending. Respiratory status is stable to improved over the last several days, and he felt immediately better after the large volume right thoracentesis yesterday. Chest x-ray again slightly worse regarding infiltrates but clinically he is stable. Will tap left side today. On broad-spectrum antibiotics and empiric steroids. No evidence of MTB. Pleural effusions: Bilateral, secondary to the above. Right pleural fluid is transudative. Acute respiratory failure: Secondary to 1. He has been intermittently on BiPAP , now on Vapotherm. Improved, no longer struggling or complaining of severe dyspnea. History of alcoholism. In penitentiary for 10 days prior to admission to [facility]. No risk for withdrawal. Remains under police surveillance. History of tobacco abuse: No evidence of COPD or asthma. On bronchodilators. Skin rash: Multiple lesions, mostly dry, without significant erythema or cellulitis. Present prior to his acute illness. Was on Keflex for these as an outpatient. Etiology is unclear. He wonders about bed bugs. I do not believe that they are related to his pulmonary issues. DVT prophylaxis: Enoxaparin GI prophylaxis: Eating Plan: Continue care in the intensive care unit. Continue IV fluids, IV antibiotics, steroids, and bronchodilators. Encourage expectoration if sputum present. For left-sided thoracentesis today. Follow chest x-ray, laboratory, blood gas if needed, and clinical status. Continue present management otherwise. Can DC respiratory isolation for tuberculosis. Will check echo. All the above discussed with nursing, respiratory therapy, hospitalist, and the ICU multi disciplinary team. 30 minutes of clinic time spent directly with the patient, not including thoracentesis. Subjective: Overall feels better. Remains on high-flow O2. Not bringing up much blood or sputum at this point. Denies chest pain. Objective: Vital Signs Temp Pulse Resp BP Pulse Ox 36.9 C 106 H 18 113/98 H 95 11/05/16 08:00 11/05/16 11:05 11/05/16 11:05 11/05/16 10:00 11/05/16 11:05 Microbiology 11/03/16 02:03 - Final Sputum, Expectorated Sputum Culture - Final 11/04/16 14:00 Gram Stain - Final Thoracic Fluid - Aspirate 11/03/16 02:03 Mycobacterial Smear (ML) - Final Sputum, Expectorated 11/04/16 10:35 Mycobacterial Smear (ML) - Final Sputum, Expectorated Laboratory Results 11/05/16 04:55 11/05/16 04:55 11/04/16 11/05/16 11/06/16 05:59 05:59 05:59 Intake Total 2082 3772 Output Total 800 2600 Balance 1282 1172 PT 14.7 SEC (12.0-15.0) 11/02/16 23:15 INR 1.15 (0.83-1.16) 11/02/16 23:15 Laboratory Tests 11/04/16 11/05/16 14:00 04:55 Calcium 7.9 L Pleural Fluid Source PLEURAL Pleural Color YELLOW Pleural Appearance CLEAR Pleural WBC 111 Pleural Neutrophils 9 Pleural Lymphocytes % 21 Pleural Total Protein < 2.0 Pleural LDH 272 Pleural Glucose 116 H Multiple serologies: Pending AFB x3 negative. Multiple cultures: Negative or pending except for a nasal swab positive for Staph aureus. Sensitivities pending Chest x-ray: Diffuse pulmonary infiltrates persist, slightly worse today, however more hypoventilatory change. No significant reaccumulation of the right pleural effusion. Pleural effusion persists on the left. Physical Exam - Physical Exam General Appearance: no apparent distress EENT: other (On Vapotherm) Neck: normal inspection (No JVD) Respiratory: decreased breath sounds, rales (Bilaterally), other (Dullness at left base), No respiratory distress, No rhonchi, No wheezing, No pleural rub Cardiac/Chest: tachycardia (Sinus, 105) Abdomen: normal bowel sounds, non-tender, soft Male Genitalia: other (No Gill catheter) Skin: warm/dry, pallor, rash (Present on ankles, low back, neck. No significant change) Extremities: No pedal edema Neuro/Psych: no motor/sensory deficits, No cognition abnormalities ICD10 Worksheet Patient Problems: Problems Problem Status Onset Pneumonia Acute
--- NOTE | 2016-11-05 14:57 | HOSPPROG ---
Hospitalist Progress Note Assessment/Plan: * Acute respiratory failure - high O2 * Bilateral PNA with hemoptysis -Cefepime, azithro, IV Vanco -TB ruled out - AFB negative -vasculitis work-up pending -on empiric IV steroids * Pleural effusion s/p thoracentesis * Tobacco dependence - patch * Etoh dependence -no Etoh for 10 days as in alf Subjective: SOB better Objective: Vital Signs Temp Pulse Resp BP Pulse Ox 36.8 C 103 H 34 H 121/85 H 94 11/05/16 12:00 11/05/16 14:00 11/05/16 14:00 11/05/16 14:00 11/05/16 14:00 Microbiology 11/04/16 14:00 Gram Stain - Final Thoracic Fluid - Aspirate 11/03/16 02:03 - Final Sputum, Expectorated Sputum Culture - Final 11/03/16 02:03 Mycobacterial Smear (ML) - Final Sputum, Expectorated 11/04/16 10:35 Mycobacterial Smear (ML) - Final Sputum, Expectorated Laboratory Results 11/05/16 04:55 11/05/16 04:55 11/04/16 11/05/16 11/06/16 05:59 05:59 05:59 Intake Total 2082 3772 Output Total 800 2600 Balance 1282 1172 PT 14.7 SEC (12.0-15.0) 11/02/16 23:15 INR 1.15 (0.83-1.16) 11/02/16 23:15 d/w Dr. Austyn Purcell - repeat thoracentesis today CXR - no change - Physical Exam Constitutional: no apparent distress, appears nourished, not in pain Cardiovascular: no murmur, rub, or gallop, tachycardia, No edema Respiratory: inspiratory crackles, respiratory distress, No expiratory wheeze, No rhonchi Gastrointestinal: normoactive bowel sounds, soft, non-tender abdomen, no palpable masses Skin: no rashes or abrasions, no fluctuance, no induration Neurologic: AAOx3, sensation intact bilaterally Psychiatric: interacting appropriately, not anxious, not encephalopathic, thought process linear ICD10 Worksheet Patient Problems: Problems Problem Status Onset Pneumonia Acute
--- NOTE | 2016-11-05 15:17 | GPN ---
[f rep st] PROCEDURE NOTE DATE OF PROCEDURE: 11/05/2016 PROCEDURE PERFORMED: Attempted thoracentesis, unsuccessful. REASON FOR PROCEDURE: Left-sided pleural effusion. The patient had a large right-sided pleural eff usion drained yesterday. PROCEDURE IN DETAIL: After adequate lidocaine local anesthesia, no fluid could be obtained with the lidocaine needle via interspace 8-9, in the location where there appeared to be significant fluid b y ultrasound yesterday. No further attempts were made. The patient will be sent for ultrasound-guided thoracentesis by Radiology tomorrow. /[id number]/MODL
[2016-11-05 16:15] LABS: LACTATE DEHYDROGENASE 777 IU/L (313-618); SPECIMEN HEMOLYSIS 103
[2016-11-06] MEDS: LORazepam 0.5 MG TAB PO PRN ×5 (00:09→22:06)
[2016-11-06] MEDS: CEFEPIME HCL 2 GM in D5W 100 ML IV SCH ×2 (00:15→10:18)
[2016-11-06] MEDS: guaiFENesin/CODEINE PHOS 10 ML UDCUP PO PRN (00:49)
[2016-11-06] MEDS: VANCOMYCIN 1.25 GM in D5W 250 ML IV SCH ×2 (00:51→10:18)
[2016-11-06 04:57] LABS: % IMMATURE GRANULYOCYTES 0.5 % (0.0-1.1); ABSOLUTE IMMATURE GRANULOCYTES 0.06 10^3/uL (0.00-0.10); ADD DIFF? NO; ADD MORPH? NO; ADD SCAN? NO; ATYPICAL LYMPHOCYTE FLAG 10 (0-99); FRAGMENT RBC FLAG 0 (0-99); HEMATOCRIT 30.5 % (40.0-51.0); LEFT SHIFT FLG 0 (0-99); LIPEMIA HEMOLYSIS FLAG 80 (0-99); MEAN CELL HEMOGLOBIN 31.6 pg (27.9-34.1); MEAN CELL HEMOGLOBIN CONCENTR. 32.8 g/dL (32.4-36.7); MEAN CELL VOLUME 96.5 fL (81.5-99.8); MEAN PLATELET VOLUME 9.8 fL (8.7-11.7); PLATELET CLUMPS FLAG 10 (0-99); PLATELET COUNT 375 10^3/uL (150-400); RED BLOOD CELL COUNT 3.16 10^6/uL (4.40-6.38); RED CELL DISTRIBUTION WIDTH 14.2 % (11.5-15.2)
[2016-11-06 05:38] LABS: ANION GAP 7 mEq/L (8-16); CALCIUM 8.2 mg/dL (8.5-10.4); CARBON DIOXIDE 23 mEq/l (22-31); CHLORIDE 110 mEq/L (97-110); CREATININE 0.6 mg/dL (0.7-1.3); GLOMERULAR FILTRATION RATE > 60; GLUCOSE 139 mg/dL (70-100); POTASSIUM 4.6 mEq/L (3.5-5.2); SODIUM 140 mEq/L (134-144)
[2016-11-06] MEDS: IPRATROPIUM/ALBUTEROL 3 ML DEYVIAL IH SCH ×4 (06:21→21:55)
[2016-11-06 07:36] LABS: INR 1.1 (0.83-1.16); PROTIME(PATIENT) 14.1 SEC (12.0-15.0)
--- NOTE | 2016-11-06 08:46 | HOSPPROG ---
Hospitalist Progress Note Assessment/Plan: #Acute hypoxemic resp failure. Due to #Bilateral PNA: cont broad abx. Thoracentesis today #hemoptysis: negative TB. ANCAs, PONCHO pending #BL pleural effusions: IR to perform today #CAP: negative for TB. Change to Azithro and CTX today. #Tobacco abuse: aime patch #Diet: regular #DVT ppx: Lovenox Subjective: less cough today. SOB improved Objective: Vital Signs Temp Pulse Resp BP Pulse Ox 37.2 C 92 22 H 116/73 92 11/05/16 19:07 11/06/16 06:22 11/06/16 06:22 11/06/16 06:00 11/06/16 06:00 Microbiology 11/04/16 14:00 Mycobacterial Smear (ML) - Final Thoracic Fluid - Aspirate 11/04/16 14:00 Gram Stain - Final Thoracic Fluid - Aspirate 11/03/16 02:03 - Final Sputum, Expectorated Sputum Culture - Final Laboratory Results 11/06/16 04:34 11/06/16 04:34 11/05/16 11/06/16 11/07/16 05:59 05:59 05:59 Intake Total 3772 2820 Output Total 2600 1550 Balance 1172 1270 PT 14.1 SEC (12.0-15.0) 11/06/16 07:19 INR 1.10 (0.83-1.16) 11/06/16 07:19 - Physical Exam Constitutional: other (tired-appearing) Eyes: PERRL Ears, Nose, Mouth, Throat: dry mucous membranes Cardiovascular: regular rate and rhythym Respiratory: rhonchi (diffuse throughout upper lungs. Decreased breath sounds at bases.) Gastrointestinal: normoactive bowel sounds Genitourinary: no bladder fullness Skin: warm, rash Musculoskeletal: full muscle strength Neurologic: AAOx3 ICD10 Worksheet Patient Problems: Problems Problem Status Onset Pneumonia Acute
[2016-11-06] MEDS: ENOXAPARIN 40 MG/0.4 ML SYR SC SCH ×2 (08:52→10:00)
--- NOTE | 2016-11-06 09:34 | PDINTPN ---
Aircraft Loadmaster Superintendent Progress Note Assessment/Plan: Assessment/Plan: * Severe bilateral community-acquired pneumonia admitted 11/02, associated with hypoxemia, acute respiratory failure, and hemoptysis. Cultures negative and probably will remain negative as he was on antibiotics prior to his admission. Multiple serologies for causative infections agents and inflammatory etiologies are pending. -Continue on broad-spectrum antibiotics and empiric steroids. No evidence of MTB. * Pleural effusions: Bilateral, secondary to the above. Right pleural fluid is transudative. -to IR today * Acute respiratory failure: Secondary to 1. on Vapotherm. Improved, no longer struggling or complaining of severe dyspnea. -likely will be able to wean off. -echo today * History of alcoholism. In halfway for 10 days prior to admission to [facility]. No risk for withdrawal. Remains under police surveillance. * History of tobacco abuse: No evidence of COPD or asthma. On bronchodilators. * Skin rash: Multiple lesions, mostly dry, without significant erythema or cellulitis. Present prior to his acute illness. Was on Keflex for these as an outpatient. Etiology is unclear. He wonders about bed bugs. I do not believe that they are related to his pulmonary issues. * DVT prophylaxis: Enoxaparin * GI prophylaxis: Eating Subjective: Resting comfortably. Feels better. Objective: Vital Signs Temp Pulse Resp BP Pulse Ox 37.2 C 92 22 H 116/73 92 11/05/16 19:07 11/06/16 06:22 11/06/16 06:22 11/06/16 06:00 11/06/16 06:00 Microbiology 11/04/16 14:00 Mycobacterial Smear (ML) - Final Thoracic Fluid - Aspirate 11/04/16 14:00 Gram Stain - Final Thoracic Fluid - Aspirate 11/03/16 02:03 - Final Sputum, Expectorated Sputum Culture - Final Laboratory Results 11/06/16 04:34 11/06/16 04:34 11/05/16 11/06/16 11/07/16 05:59 05:59 05:59 Intake Total 3772 2820 Output Total 2600 1550 Balance 1172 1270 PT 14.1 SEC (12.0-15.0) 11/06/16 07:19 INR 1.10 (0.83-1.16) 11/06/16 07:19 Physical Exam - Physical Exam General Appearance: alert, no apparent distress EENT: PERRL/EOMI, normal ENT inspection, pharynx normal, TMs normal Neck: non-tender, full range of motion, supple, normal inspection Respiratory: crackles, No respiratory distress, No stridor, No wheezing Cardiac/Chest: normal peripheral pulses, regular rate, rhythm, systolic murmur Peripheral Pulses: 2+: carotid (R), carotid (L), femoral (R), femoral (L), dorsalis-pedis (R), dorsalis-pedis (L) Abdomen: normal bowel sounds, non-tender, soft Male Genitalia: deferred Rectal: deferred Skin: normal color, warm/dry Extremities: normal range of motion, non-tender, normal inspection, normal capillary refill Neuro/Psych: no motor/sensory deficits, alert, normal mood/affect, oriented x 3 ICD10 Worksheet Patient Problems: Problems Problem Status Onset Pneumonia Acute
[2016-11-06] MEDS: methylPREDNISolone SOD SUCC 40 MG/ML VIAL IVP SCH (10:00)
[2016-11-06] MEDS: AZITHROMYCIN IV 500 MG in D5W 250 ML IV SCH (10:00)
[2016-11-06] MEDS: guaiFENesin 600 MG TAB.ER PO SCH ×2 (10:00→20:31)
[2016-11-06] MEDS: NICOTINE 21 MG/24 HR PATCH TD SCH (10:01)
[2016-11-06] MEDS: AZITHROMYCIN 250 MG TAB PO SCH (10:41)
[2016-11-06] MEDS: cefTRIAXone 2 GM in D5W 50 ML IV SCH (10:41)
[2016-11-06 10:49] LABS: ANTI CCP AB < 15.6 U
[2016-11-06 10:55] LABS: GLOMERULAR BSMNT MEMBRANE IGG <0.2 U
--- NOTE | 2016-11-06 11:12 | ECHO ---
[id number] + + [address] : : [place] [address] : : [phone] + + Adult Echocardiographic Report + --+ :Name: PATIENCEMimi Date: 11/06/2016 10:45 AM : : Hospital Admission Number: [id number] Location: 2 54: :: 1985 Gender: Male Height: 71 in : :Age: 31 yrs Race: WH Weight: 150 lb : :Reason For Study: Eval LV Fx : : BSA: 1.9 meters2 : :History: Severe pneumonia, bilateral transudative : :effusions. : + --+ MMode/2D Measurements \T\ Calculations IVSd: 0.96 cm LVIDd: 4.8 cm FS: 19.7 % MV Diam: 3.2 cm LVPWd: 1.0 cm LVIDs: 3.8 cm EDV(Teich): 106.5 ml ESV(Teich): 63.5 ml EF(Teich): 40.4 % Ao root diam: LVOT diam: 2.0 cm LVLd ap4: 8.1 cm SV(MOD-sp4): 3.1 cm LVOT area: EDV(MOD-sp4): 37.0 ml ACS: 1.5 cm 3.1 cm2 91.0 ml LVLs ap4: 7.1 cm ESV(MOD-sp4): 54.0 ml EF(MOD-sp4): 40.7 % Normal Measurement Values: + + :LVIDd (3.5-5.7cm) IVSd (0.6-1.1cm) LVPWd (0.6-1.1cm) Aortic Root (2.0-3.7cm)Left Atrium (1.5-4.0cm): :LV Vol(d) (76-115ml) LV Vol(s) (29-48ml) Ejec Fraction (50-65%)PV Reji (0.6- 1.2m/s) TV Reji (0.4-1.0m/s) : :MV E Reji (0.8-1.0m/s)MV A Reji (0.3-1.0m/s)LVOT Reji (0.7-1.2m/s) Asc Ao Reji ( 0.9-1.8m/s) : + + Doppler Measurements \T\ Calculations MV V2 mean: Ao V2 max: AI max reij: LV V1 max: 74.1 cm/sec 105.9 cm/sec 457.6 cm/sec 78.5 cm/sec MV mean P.7 mmHgAo max PG: AI max P.8 mmHgLV V1 max PG: MV V2 VTI: 21.4 cm 4.5 mmHg AI dec slope: 2.5 mmHg MV area (1 diam): Ao mean P.8 cm/sec2 LV V1 mean P.0 cm2 2.7 mmHg AI P1/2t: 566.0 msec1.3 mmHg Ao V2 mean: LV V1 mean: MVA(VTI): 2.1 cm2 77.3 cm/sec 53.6 cm/sec MV Flow area(1diam):Ao V2 VTI: 19.6 cm LV V1 VTI: 8.0 cm2 VITO(I,D): 2.3 cm2 14.5 cm VITO(V,D): 2.3 cm2 MR max reji: MR(RF 1 diam): SV(MV 1 diam): PA V2 max: 544.9 cm/sec 31.3 % 171.3 ml 77.4 cm/sec MR max PG: SI(MV 1 diam): PA max P.7 mmHg 91.8 ml/m2 2.4 mmHg SV(LVOT): 45.7 ml TR max reji: RF(MV,Ao)(1 diam): 447.7 cm/sec 0.15 TR max P.2 mmHgRF(MV,LVOT) RAP systole: (1diam): 0.73 5.0 mmHg RVSP(TR): 85.2 mmHg Left Ventricle The left ventricle is normal in size. There is normal left ventricular wall thickness. Ejection Fraction = 40-45%. There is mild mid anteroseptal hypokinesis. Regional wall motion abnormalities cannot be excluded due to limited visualization. Right Ventricle The right ventricle is normal in size and function. Atria The left atrial size is normal. Right atrial size is normal. Mitral Valve There is no mitral valve stenosis. There is moderate mitral regurgitation. Tricuspid Valve There is mild tricuspid regurgitation. Right ventricular systolic pressure is 86mmHg. There is Doppler evidence for severe pulmonary hypertension. Aortic Valve The aortic valve is trileaflet. There is no aortic stenosis. Mild aortic regurgitation. Pulmonic Valve The pulmonic valve is normal in structure and function. There is no pulmonic valvular regurgitation. Great Vessels The aortic root is normal size. Pericardium/Pleural There is no pericardial effusion. There is a large pleural effusion. Conclusion A complete two-dimensional transthoracic echocardiogram was performed (2D, M-mode, Doppler and color flow Doppler). Ejection Fraction = 40-45%. There is mild mid anteroseptal hypokinesis. There is no mitral valve stenosis. There is moderate mitral regurgitation. There is mild tricuspid regurgitation. Right ventricular systolic pressure is 86mmHg. There is Doppler evidence for severe pulmonary hypertension. The aortic valve is trileaflet. Mild aortic regurgitation. There is no pericardial effusion. There is a large pleural effusion. Final Reading Physician: Hector Alvarado signed on 11/06/2016 11:11 AM Ordering Physician: SARAH MORIN Performed By: Abner Love, RAINACS
[2016-11-06 11:29] LABS: RESPPCR RESULT SEE COMMENTS
[2016-11-06 12:05] LABS: c-ANCA Negative (Negative); p-ANCA Negative (Negative)
[2016-11-06] MEDS ORDERED: LIDOCAINE 1% 30 ML SDV ONE (13:53)
[2016-11-06] MEDS ORDERED: NA BICARBONATE 50 MEQ/50 ML VIAL ONE (13:53)
[2016-11-06 16:26] LABS: LD, PLEURAL FLUID 380 IU/L
--- NOTE | 2016-11-06 17:40 | PCMIDPN ---
Assessment/Plan: Assessment/Plan: * Severe bilateral pneumonia with parapneumonic effusion (transudative): Nasal screen for MRSA shows MSSA. Slow clinical improvement. Cultures without evidence of Pseudomonas to date. Based on these findings, will transition antibiotic therapy from vancomycin, cefepime and azithromycin to ceftriaxone and azithromycin with continued spectrum targeting community-acquired pneumonia. Suspect previous decline while on ceftriaxone and azithromycin primarily related to natural history of disease process rather than antibiotic failure. 11/06/16 17:37 Subjective: Patient with persistent cough. Less shortness of breath. Objective: Vital Signs Temp Pulse Resp BP Pulse Ox 37.2 C 95 29 H 130/83 H 95 11/05/16 19:07 11/06/16 16:00 11/06/16 12:00 11/06/16 16:00 11/06/16 16:00 Microbiology 11/06/16 14:53 Gram Stain - Final Thoracic Fluid - Aspirate 11/04/16 14:00 Gram Stain - Final Thoracic Fluid - Aspirate 11/04/16 14:00 Mycobacterial Smear (ML) - Final Thoracic Fluid - Aspirate Laboratory Results 11/06/16 04:34 11/06/16 04:34 11/05/16 11/06/16 11/07/16 05:59 05:59 05:59 Intake Total 3772 2820 Output Total 2600 1550 200 Balance 1172 1270 -200 ESR 48 MM/HR (0-15) H 11/03/16 12:06 C-Reactive Protein 59.7 mg/L (<10.0) H 11/03/16 12:06 Vancomycin # 3 Cefepime # 3 Azithromycin # 4 Sputum with mixed oral sarmad Sputum AFB x3 negative Blood cultures x2 no growth Respiratory virus PCR negative Urine Streptococcus pneumoniae and Legionella antigen negative Influenza PCR negative Mycoplasma antibody pending Laboratory Tests 11/04/16 11/06/16 14:00 08:02 Pleural WBC 111 Pleural RBC 419 Pleural Neutrophils 9 Pleural Lymphocytes % 21 Pleural Total Protein < 2.0 Pleural LDH 272 Pleural Glucose 116 H Vancomycin Trough 17.0 - Physical Exam General Appearance: alert, no apparent distress EENT: No scleral icterus, No conjunctival petechiae Respiratory: crackles (Bilaterally), other (Decreased breath sounds left base) Cardiac/Chest: regular rate, rhythm Abdomen: non-tender, No distended Skin: rash (Multiple excoriated appearing lesions over lower extremities bilaterally) ICD10 Worksheet Patient Problems: Problems Problem Status Onset Pneumonia Acute
--- NOTE | 2016-11-06 22:37 | GCON ---
[f rep st] CONSULTATION DATE OF CONSULTATION: 11/06/2016 REASON FOR CONSULTATION: Penile and scrotal swelling. HISTORY OF PRESENT ILLNESS: This is a 31-year-old male who has recently been incarcerated with a history of severe alcoholism, sober since hospital stay, complains now of 1 day of penile swelling. He reports that the swelling is painless and began as noted last night. Less swelling today. No difficulty urinating. Denies any past history of penile swelling. No other complaints. Significant medical history including several bilateral community- acquired pneumonias with respiratory failure, hemoptysis, pleural effusions, significant history of alcoholism as mentioned. PAST MEDICAL HISTORY: Severe alcohol abuse. SOCIAL HISTORY: Incarcerated for alcohol-related charges. Drinks multiple pints of whiskey daily. Smokes a pack of cigarettes. No other drug or IV use. FAMILY HISTORY: Positive for Parkinson, as well as alcoholism. REVIEW OF SYSTEMS: A 10-point review of systems negative except as mentioned in HPI with the addition of shortness of breath. ALLERGIES: Penicillin. MEDICATIONS: See med rec please. PHYSICAL EXAM: VITAL SIGNS: Blood pressure 111/70, heart rate 95, respirations 29, O2 92 on 25 L/minute. GENERAL: This is a somewhat ill- appearing man in mild distress. HEENT: Normocephalic, atraumatic. Extraocular movements intact. NECK: Supple. No lymphadenopathy. Trachea midline. RESPIRATORY: Labored, particularly obvious when patient was supine. CARDIAC: Regular rate and rhythm. Mild lower extremity edema. No obvious JVD. GI: Abdomen soft, nondistended. Well-healed incision on abdomen present. : No bladder distention. Patient does have edema on the distal end of the penis soft without any crepitus, erythema, or sign of infection. Generalized edema of the scrotum as well bilaterally very mild erythema, but again no crepitus, no sign of obvious infection, nontender to palpation. INTEGUMENT: Patient is pale. NEURO: Affect appropriate to situation. MUSCULOSKELETAL: Examined while supine, but moving all 4 extremities without difficulty. LABORATORY DATA: His white blood cell count 12.79, hemoglobin 10, hematocrit 30.5, platelets 375. Chemistry: Sodium 140, potassium 4.6, chloride 110, anion gap 7, creatinine 0.6, glucose 139, calcium 8.2. Urine positive for blood , negative for white blood cells. ASSESSMENT: Genital edema. PLAN: Genital edema likely secondary to pleural effusions, possibly fluid overloaded system. No sign of infection on exam. Recommend scrotum be kept propped up as much as possible, ideally above the heart to increase fluids being reabsorbed back into the system, although this may be somewhat difficult at this time. We will continue to monitor patient as needed or requested, but at this point without sign of infection or any difficulty urinating, fluid should likely reabsorb into the patient's system over time. /[id number]/MODL MTDD
[2016-11-07] MEDS: IPRATROPIUM/ALBUTEROL 3 ML DEYVIAL IH SCH ×4 (06:11→21:39)
[2016-11-07] MEDS: LORazepam 0.5 MG TAB PO PRN ×4 (06:11→20:20)
[2016-11-07] MEDS: guaiFENesin/CODEINE PHOS 10 ML UDCUP PO PRN (06:13)
[2016-11-07 06:19] LABS: HEMATOCRIT 29.9 % (40.0-51.0); HEMOGLOBIN 9.6 g/dL (13.7-17.5); LIPEMIA HEMOLYSIS FLAG 80 (0-99); MEAN CELL HEMOGLOBIN CONCENTR. 32.1 g/dL (32.4-36.7); MEAN CELL VOLUME 96.5 fL (81.5-99.8); PLATELET COUNT 405 10^3/uL (150-400); RED CELL DISTRIBUTION WIDTH 14.1 % (11.5-15.2)
[2016-11-07 06:49] LABS: ANION GAP 4 mEq/L (8-16); CALCIUM 7.8 mg/dL (8.5-10.4); CARBON DIOXIDE 25 mEq/l (22-31); CHLORIDE 111 mEq/L (97-110); CREATININE 0.6 mg/dL (0.7-1.3); GLOMERULAR FILTRATION RATE > 60; GLUCOSE 81 mg/dL (70-100); SODIUM 140 mEq/L (134-144)
[2016-11-07] MEDS: NICOTINE 21 MG/24 HR PATCH TD SCH (08:02)
[2016-11-07] MEDS: guaiFENesin 600 MG TAB.ER PO SCH ×2 (08:05→20:20)
[2016-11-07] MEDS: AZITHROMYCIN 250 MG TAB PO SCH (08:05)
[2016-11-07] MEDS: cefTRIAXone 2 GM in D5W 50 ML IV SCH (08:06)
--- NOTE | 2016-11-07 08:51 | PCMIDPN ---
Assessment/Plan: Assessment/Plan: 1. Severe bilateral pneumonia with parapneumonic effusion. - s/p thoracentesis yesterday. -Multiple studies neg including: U. strep Ag, Legionella, Influenza, RVP, HIV - Mycoplasma Ab's pending. -Wbc improving. -Recent CXR reviewed. -care coordinated with commercial lines sales executive 2. History of Alcoholism Meds Ceftriaxone 2g daily- 11/06/16 Azithro 500mg PO daily- 11/03/16 (overall) previously on vanco, cefepime, azithro (IV) Subjective: Afebrile. Dry cough mostly. c/o sob and exacerbation of cough especially when he lays flat. Denies diarrhea. had formed BM yesterday. c/o swelling of LE and scrotum. Objective: Vital Signs Temp Pulse Resp BP Pulse Ox 36.8 C 117 H 30 H 135/84 H 97 11/07/16 08:00 11/07/16 08:00 11/07/16 08:00 11/07/16 08:00 11/07/16 08:00 Microbiology 11/04/16 09:27 MRSA Culture - Final Nose - Swab Staphylococcus Aureus 11/06/16 14:53 Gram Stain - Final Thoracic Fluid - Aspirate 11/04/16 14:00 Gram Stain - Final Thoracic Fluid - Aspirate Laboratory Results 11/07/16 06:00 11/07/16 06:00 11/06/16 11/07/16 11/08/16 05:59 05:59 05:59 Intake Total 2820 500 Output Total 1550 201.4 Balance 1270 298.6 ESR 48 MM/HR (0-15) H 11/03/16 12:06 C-Reactive Protein 59.7 mg/L (<10.0) H 11/03/16 12:06 - Physical Exam General Appearance: alert, no apparent distress EENT: No thrush Respiratory: coarse breath sounds (bilaterally) Cardiac/Chest: tachycardia Extremities: swelling (LE) Abdomen: normal bowel sounds, non-tender, soft, distended Skin: rash ICD10 Worksheet Patient Problems: Problems Problem Status Onset Pneumonia Acute
--- NOTE | 2016-11-07 09:14 | PDINTPN ---
Seam Rubbing Machine Operator Progress Note Assessment/Plan: Assessment/Plan: * Severe bilateral community-acquired pneumonia admitted 11/02, associated with hypoxemia, acute respiratory failure, and hemoptysis. Cultures negative and probably will remain negative as he was on antibiotics prior to his admission. Multiple serologies for causative infections agents and inflammatory etiologies are pending. -Continue on broad-spectrum antibiotics and empiric steroids. -clinically improved * Pleural effusions: Bilateral, secondary to the above. Right pleural fluid is transudative. -left effusion is improved after thoracentesis. -right effusion has increased * Acute respiratory failure: Markedly better. Currently on nasal cannula oxygen. -likely will be able to wean off. * History of alcoholism. In [place] [facility] for 10 days prior to admission to [facility]. No risk for withdrawal. Remains under police surveillance. * History of tobacco abuse: No evidence of COPD or asthma. On bronchodilators. * Skin rash: Multiple lesions, mostly dry, without significant erythema or cellulitis. Present prior to his acute illness. Was on Keflex for these as an outpatient. Etiology is unclear. He wonders about bed bugs. I do not believe that they are related to his pulmonary issues. * DVT prophylaxis: Enoxaparin * GI prophylaxis: Eating * Disposition-will transfer to med surg Subjective: Looks and feels markedly improved. He has less cough and less dyspnea. He is out of bed to chair and quite comfortable. Objective: Vital Signs Temp Pulse Resp BP Pulse Ox 36.8 C 117 H 30 H 135/84 H 97 11/07/16 08:00 11/07/16 08:00 11/07/16 08:00 11/07/16 08:00 11/07/16 08:00 Microbiology 11/04/16 09:27 MRSA Culture - Final Nose - Swab Staphylococcus Aureus 11/06/16 14:53 Gram Stain - Final Thoracic Fluid - Aspirate 11/04/16 14:00 Gram Stain - Final Thoracic Fluid - Aspirate Laboratory Results 11/07/16 06:00 11/07/16 06:00 11/06/16 11/07/16 11/08/16 05:59 05:59 05:59 Intake Total 2820 500 Output Total 1550 201.4 Balance 1270 298.6 PT 14.1 SEC (12.0-15.0) 11/06/16 07:19 INR 1.10 (0.83-1.16) 11/06/16 07:19 Laboratory Results 11/07/16 06:00 11/07/16 06:00 11/06/16 14:53 Fluid Meso/Macro/Shelby % 20 % % Fl Pathologist Review Pending Pleural Fluid Source PLEURAL Pleural Color STRAW Pleural Appearance SL. HAZY H Pleural pH 7.2 (6.8 - 7.6) Pleural WBC 34 /mm3 /mm3 Pleural RBC 308 /MM3 /MM3 Pleural Neutrophils 15 % % Pleural Lymphocytes % 64 % % Pleural Other Cells % 1 % H % (0 - 0) Pleural Total Protein < 2.0 g/dL g/dL Pleural LDH 380 IU/L IU/L Pleural Glucose 108 mg/dL mg/dL (55 - 113) 11/06/16 14:53 Gram Stain - Final Thoracic Fluid - Aspirate Body Fluid Culture - Pending 11/04/16 09:27 MRSA Culture - Final Nose - Swab Staphylococcus Aureus Chest [id number] by myself. Left-sided pleural effusion is markedly reduced. Right-sided pleural effusion has increased. Physical Exam - Physical Exam General Appearance: alert, no apparent distress EENT: PERRL/EOMI, normal ENT inspection, pharynx normal, TMs normal Neck: non-tender, full range of motion, supple, normal inspection Respiratory: crackles (Bibasilar), No respiratory distress, No wheezing Cardiac/Chest: normal peripheral pulses, regular rate, rhythm Peripheral Pulses: 2+: carotid (R), carotid (L), femoral (R), femoral (L), dorsalis-pedis (R), dorsalis-pedis (L) Abdomen: normal bowel sounds, non-tender, soft Male Genitalia: deferred Rectal: deferred Skin: normal color, warm/dry Extremities: normal range of motion, non-tender, normal inspection, normal capillary refill Neuro/Psych: no motor/sensory deficits, alert, normal mood/affect, oriented x 3 ICD10 Worksheet Patient Problems: Problems Problem Status Onset Pneumonia Acute
[2016-11-07 11:39] LABS: MYCOPLASMA PNUEMONIAE IGM 0.28 index (<=0.90)
--- NOTE | 2016-11-07 12:33 | HOSPPROG ---
Hospitalist Progress Note Assessment/Plan: #Acute hypoxemic resp failure. Due to #Severe bilateral PNA: cont broad abx. Left pleural effusion improved after thoracentesis 11/06 -cont CTX, Azithro #Hemoptysis: negative TB, ANCAs, and PONCHO #BL pleural effusions: IR to perform today #Tobacco abuse: aime patch #Skin lesions: wonder if some type of bug bite? Currently no e/o cellulitis. Wound care consult #Diet: regular #DVT ppx: Lovenox #Disp: transfer to med-surg Subjective: breathing feels better Objective: Vital Signs Temp Pulse Resp BP Pulse Ox 36.8 C 117 H 30 H 135/84 H 97 11/07/16 08:00 11/07/16 08:00 11/07/16 08:00 11/07/16 08:00 11/07/16 08:00 Microbiology 11/04/16 14:00 Gram Stain - Final Thoracic Fluid - Aspirate Body Fluid Culture - Final 11/04/16 09:27 MRSA Culture - Final Nose - Swab Staphylococcus Aureus 11/06/16 14:53 Gram Stain - Final Thoracic Fluid - Aspirate Laboratory Results 11/07/16 06:00 11/07/16 06:00 11/06/16 11/07/16 11/08/16 05:59 05:59 05:59 Intake Total 2820 500 550 Output Total 1550 201.4 Balance 1270 298.6 550 PT 14.1 SEC (12.0-15.0) 11/06/16 07:19 INR 1.10 (0.83-1.16) 11/06/16 07:19 - Physical Exam Constitutional: no apparent distress Eyes: PERRL Ears, Nose, Mouth, Throat: dry mucous membranes Cardiovascular: regular rate and rhythym, tachycardia, other (improved air movement left lung field) Respiratory: no respiratory distress, rhonchi Gastrointestinal: normoactive bowel sounds Genitourinary: no bladder fullness Skin: other (mutiple skin lesions on legs and arms: erythematous with no drainage) ICD10 Worksheet Patient Problems: Problems Problem Status Onset Pneumonia Acute
--- NOTE | 2016-11-07 14:24 | WOCRNPDOC ---
WOCRN Advanced Assessment Note - Skin Integrity Problem, Advanced Assess Generalized Vesicles (closed) Dressing Type: Open to Air Skin Integrity Problem Comment: Various itchy partially healed lesions on back of neck, lower back, bilateral lower extremities and dorsal left foot. Unknown etiology. Patient scratching a lot. Advise stop scratching and let wounds heal. Please reconsult prn.
[2016-11-07] MEDS: BENZONATATE 100 MG CAP PO PRN (20:20)
[2016-11-08] MEDS: LORazepam 0.5 MG TAB PO PRN ×4 (00:21→22:25)
[2016-11-08 05:18] LABS: HEMATOCRIT 35.8 % (40.0-51.0); HEMOGLOBIN 11.6 g/dL (13.7-17.5); LIPEMIA HEMOLYSIS FLAG 80 (0-99); MEAN CELL HEMOGLOBIN CONCENTR. 32.4 g/dL (32.4-36.7); MEAN CELL VOLUME 95.7 fL (81.5-99.8); PLATELET COUNT 494 10^3/uL (150-400); RED BLOOD CELL COUNT 3.74 10^6/uL (4.40-6.38); RED CELL DISTRIBUTION WIDTH 14.1 % (11.5-15.2)
[2016-11-08] MEDS: IPRATROPIUM/ALBUTEROL 3 ML DEYVIAL IH SCH ×4 (05:50→21:58)
--- NOTE | 2016-11-08 08:20 | HOSPPROG ---
Hospitalist Progress Note Assessment/Plan: #Acute hypoxemic resp failure: 08/31 #Severe bilateral PNA: -Left pleural effusion improved after thoracentesis 11/06 -cont CTX, Azithro #Hemoptysis: negative TB, ANCAs, PONCHO, anti-CCP, anti-GM Ag #BL pleural effusions: -left thoracentesis done 11/06 -CXR pending today #Tobacco abuse: aime patch #Skin lesions: wonder if some type of bug bite? Currently no e/o cellulitis. Wound care consult #Diet: regular #DVT ppx: Lovenox #Disp: transfer to med-surg Subjective: coughing overnight, but feels less SOB Objective: Vital Signs Temp Pulse Resp BP Pulse Ox 37.1 C 100 16 121/78 H 90 L 11/08/16 07:36 11/08/16 07:36 11/08/16 07:36 11/08/16 07:36 11/08/16 07:36 Microbiology 11/02/16 18:54 Blood Culture - Final Blood 11/02/16 16:24 Blood Culture - Final Blood 11/04/16 14:00 Mycobacterial Smear (ML) - Final Thoracic Fluid - Aspirate 11/04/16 10:35 Mycobacterial Smear (ML) - Final Sputum, Expectorated 11/03/16 02:03 Mycobacterial Smear (ML) - Final Sputum, Expectorated 11/02/16 23:10 Mycobacterial Smear (ML) - Final Sputum, Expectorated 11/06/16 14:53 Gram Stain - Final Thoracic Fluid - Aspirate 11/04/16 14:00 Gram Stain - Final Thoracic Fluid - Aspirate Body Fluid Culture - Final 11/04/16 09:27 MRSA Culture - Final Nose - Swab Staphylococcus Aureus Laboratory Results 11/08/16 05:08 11/07/16 06:00 11/07/16 11/08/16 11/09/16 05:59 05:59 05:59 Intake Total 500 1530 Output Total 201.4 1200 Balance 298.6 330 PT 14.1 SEC (12.0-15.0) 11/06/16 07:19 INR 1.10 (0.83-1.16) 11/06/16 07:19 - Physical Exam Constitutional: no apparent distress Eyes: PERRL Ears, Nose, Mouth, Throat: moist mucous membranes Cardiovascular: regular rate and rhythym Respiratory: other (crackles left base, decreased BS right base) Gastrointestinal: normoactive bowel sounds Genitourinary: no bladder fullness Skin: warm, other (small healing lesions over legs, arms. Scabbing, no purulence ) Musculoskeletal: full muscle strength Neurologic: AAOx3 Psychiatric: interacting appropriately ICD10 Worksheet Patient Problems: Problems Problem Status Onset Pneumonia Acute
--- NOTE | 2016-11-08 09:12 | SOAPPROG ---
SOAP Progress Note Assessment/Plan: Assessment: Genital edema- improved Plan: Continue elevation PRN. 11/08/16 09:11 Subjective: Less penile swelling Objective: Vital Signs Temp Pulse Resp BP Pulse Ox 37.1 C 100 16 121/78 H 90 L 11/08/16 07:36 11/08/16 07:36 11/08/16 07:36 11/08/16 07:36 11/08/16 07:36 Microbiology 11/02/16 18:54 Blood Culture - Final Blood 11/02/16 16:24 Blood Culture - Final Blood 11/04/16 14:00 Mycobacterial Smear (ML) - Final Thoracic Fluid - Aspirate 11/04/16 10:35 Mycobacterial Smear (ML) - Final Sputum, Expectorated 11/03/16 02:03 Mycobacterial Smear (ML) - Final Sputum, Expectorated 11/02/16 23:10 Mycobacterial Smear (ML) - Final Sputum, Expectorated 11/06/16 14:53 Gram Stain - Final Thoracic Fluid - Aspirate 11/04/16 14:00 Gram Stain - Final Thoracic Fluid - Aspirate Body Fluid Culture - Final 11/04/16 09:27 MRSA Culture - Final Nose - Swab Staphylococcus Aureus Laboratory Results 11/08/16 05:08 11/07/16 06:00 11/07/16 11/08/16 11/09/16 05:59 05:59 05:59 Intake Total 500 1530 Output Total 201.4 1200 Balance 298.6 330 PT 14.1 SEC (12.0-15.0) 11/06/16 07:19 INR 1.10 (0.83-1.16) 11/06/16 07:19 Physical Exam - Physical Exam General Appearance: no apparent distress Male Genitalia: other (mild penile edema, no longer has scrotal swelling) ICD10 Worksheet Patient Problems: Problems Problem Status Onset Pneumonia Acute
--- NOTE | 2016-11-08 09:38 | PDINTPN ---
Analytical Sciences Director Progress Note Assessment/Plan: Assessment/Plan: * Severe bilateral community-acquired pneumonia admitted 11/02, associated with hypoxemia, acute respiratory failure. -Continue on broad-spectrum antibiotics and empiric steroids. -clinically improved * Pleural effusions: Bilateral, secondary to the above. Right pleural fluid is transudative. -left effusion is improved after thoracentesis. -right effusion has increased. We will check chest x-ray today * Acute respiratory failure: Markedly better. Currently on nasal cannula oxygen. -likely will be able to wean off. * History of alcoholism. In [facility] for 10 days prior to admission to [facility]. No risk for withdrawal. Remains under police surveillance. * History of tobacco abuse: No evidence of COPD or asthma. On bronchodilators. * Skin rash: Multiple lesions, mostly dry, without significant erythema or cellulitis. Present prior to his acute illness. Was on Keflex for these as an outpatient. Etiology is unclear. He wonders about bed bugs. I do not believe that they are related to his pulmonary issues. * DVT prophylaxis: Enoxaparin * GI prophylaxis: Eating * Disposition-will transfer to med surg Subjective: Resting comfortably. No changes level of breathlessness. Objective: Vital Signs Temp Pulse Resp BP Pulse Ox 37.1 C 100 16 121/78 H 90 L 11/08/16 07:36 11/08/16 07:36 11/08/16 07:36 11/08/16 07:36 11/08/16 07:36 Microbiology 11/02/16 18:54 Blood Culture - Final Blood 11/02/16 16:24 Blood Culture - Final Blood 11/04/16 14:00 Mycobacterial Smear (ML) - Final Thoracic Fluid - Aspirate 11/04/16 10:35 Mycobacterial Smear (ML) - Final Sputum, Expectorated 11/03/16 02:03 Mycobacterial Smear (ML) - Final Sputum, Expectorated 11/02/16 23:10 Mycobacterial Smear (ML) - Final Sputum, Expectorated 11/06/16 14:53 Gram Stain - Final Thoracic Fluid - Aspirate 11/04/16 14:00 Gram Stain - Final Thoracic Fluid - Aspirate Body Fluid Culture - Final 11/04/16 09:27 MRSA Culture - Final Nose - Swab Staphylococcus Aureus Laboratory Results 11/08/16 05:08 11/07/16 06:00 04/06/1511/08/16 11/09/16 05:59 05:59 05:59 Intake Total 500 1530 Output Total 201.4 1200 Balance 298.6 330 PT 14.1 SEC (12.0-15.0) 11/06/16 07:19 INR 1.10 (0.83-1.16) 11/06/16 07:19 Physical Exam - Physical Exam General Appearance: alert, no apparent distress EENT: PERRL/EOMI, normal ENT inspection, pharynx normal, TMs normal Neck: non-tender, full range of motion, supple, normal inspection Respiratory: crackles (Few), No respiratory distress, No stridor, No wheezing Cardiac/Chest: normal peripheral pulses, regular rate, rhythm Peripheral Pulses: 2+: carotid (R), carotid (L), femoral (R), femoral (L), dorsalis-pedis (R), dorsalis-pedis (L) Abdomen: normal bowel sounds, non-tender, soft Male Genitalia: deferred Rectal: deferred Skin: normal color, warm/dry Extremities: normal range of motion, non-tender, normal inspection, normal capillary refill Neuro/Psych: no motor/sensory deficits, alert, normal mood/affect, oriented x 3 ICD10 Worksheet Patient Problems: Problems Problem Status Onset Pneumonia Acute
[2016-11-08] MEDS: AZITHROMYCIN 250 MG TAB PO SCH (09:44)
[2016-11-08] MEDS: ENOXAPARIN 40 MG/0.4 ML SYR SC SCH (09:44)
[2016-11-08] MEDS: cefTRIAXone 2 GM in D5W 50 ML IV SCH (09:44)
[2016-11-08] MEDS: guaiFENesin 600 MG TAB.ER PO SCH ×2 (09:44→19:47)
[2016-11-08] MEDS: NICOTINE 21 MG/24 HR PATCH TD SCH ×2 (09:44→10:06)
--- NOTE | 2016-11-08 17:11 | PCMIDPN ---
Assessment/Plan: Assessment: Severe pneumonia and bilateral pleural effusions. No pathogen isolated. Respiratory panel is negative for viral pathogens. Mycoplasma titers do not show recent IgM positivity. Suspect this is somehow indirectly related to his alcoholism. Suspect oral sarmad was the inciting pathogen here despite our inability to isolated after preceding antibiotic use. Given that he is slowly improving will continue the ceftriaxone and azithromycin. Rash multiple lesions over his trunk, face and extremities. These are in the process of healing. The patient says that he is got no new lesions since he started taking oral Levaquin as an outpatient. Will continue to observe. If he develops any new lesions biopsies are reasonable. Plan: 1. Continue both ceftriaxone and azithromycin. 2. Follow clinical course. 11/08/16 18:10 Subjective: Patient is resting in his hospital bed. He denies any new complaints. States he is still short of breath. He is also continuing to expectorate blood tinged sputum. Objective: Ceftriaxone # 2 Azithromycin # 6 Vital Signs Temp Pulse Resp BP Pulse Ox 36.7 C 100 20 121/80 H 91 L 11/08/16 16:00 11/08/16 16:00 11/08/16 16:00 11/08/16 16:00 11/08/16 16:00 Microbiology 11/06/16 14:53 Gram Stain - Final Thoracic Fluid - Aspirate 11/02/16 18:54 Blood Culture - Final Blood 11/02/16 16:24 Blood Culture - Final Blood 11/04/16 14:00 Mycobacterial Smear (ML) - Final Thoracic Fluid - Aspirate 11/04/16 10:35 Mycobacterial Smear (ML) - Final Sputum, Expectorated 11/03/16 02:03 Mycobacterial Smear (ML) - Final Sputum, Expectorated 11/02/16 23:10 Mycobacterial Smear (ML) - Final Sputum, Expectorated 11/04/16 14:00 Gram Stain - Final Thoracic Fluid - Aspirate Body Fluid Culture - Final Laboratory Results 11/08/16 05:08 11/07/16 06:00 11/07/16 11/08/16 11/09/16 05:59 05:59 05:59 Intake Total 500 1530 Output Total 201.4 1200 700 Balance 298.6 330 -700 ESR 48 MM/HR (0-15) H 11/03/16 12:06 C-Reactive Protein 59.7 mg/L (<10.0) H 11/03/16 12:06 - Physical Exam General Appearance: WD/WN, alert, no apparent distress, thin, non-toxic Respiratory: lungs clear (Clear mostly except for left lower lobe), crackles ( Left lower lobe), No wheezing, No coarse breath sounds Cardiac/Chest: regular rate, rhythm, No tachycardia Extremities: non-tender, normal inspection Skin: normal color, warm/dry, No rash Neuro/Psych: alert, normal mood/affect, oriented x 3 ICD10 Worksheet Patient Problems: Problems Problem Status Onset Pneumonia Acute
[2016-11-09] MEDS: IPRATROPIUM/ALBUTEROL 3 ML DEYVIAL IH SCH ×4 (05:45→20:57)
[2016-11-09 07:21] LABS: ANION GAP 3 mEq/L (8-16); CALCIUM 8.4 mg/dL (8.5-10.4); CARBON DIOXIDE 33 mEq/l (22-31); CHLORIDE 105 mEq/L (97-110); CREATININE 0.8 mg/dL (0.7-1.3); GLOMERULAR FILTRATION RATE > 60; GLUCOSE 90 mg/dL (70-100); POTASSIUM 4.5 mEq/L (3.5-5.2); SODIUM 141 mEq/L (134-144)
--- NOTE | 2016-11-09 09:03 | PDINTPN ---
Quality Control Specialist Progress Note Assessment/Plan: Assessment/Plan: * Severe bilateral community-acquired pneumonia admitted 11/02, associated with hypoxemia, acute respiratory failure. -Continue on broad-spectrum antibiotics and empiric steroids. -clinically improved, -will check a CT scan of the chest today * Pleural effusions: Bilateral, secondary to the above. Right pleural fluid is transudative. -left effusion is improved after thoracentesis. -right effusion has increased. We will check chest x-ray today * Acute respiratory failure: Markedly better. Currently on nasal cannula oxygen at 5 L * History of alcoholism. In prison for 10 days prior to admission to [facility]. No risk for withdrawal. Remains under police surveillance. * History of tobacco abuse: No evidence of COPD or asthma. On bronchodilators. * Skin rash: Resolved * DVT prophylaxis: Enoxaparin * GI prophylaxis: Eating Subjective: Sitting up eating. No changes level of breathlessness. No changes cough, which is still bloody Objective: Vital Signs Temp Pulse Resp BP Pulse Ox 36.8 C 98 36 H 134/93 H 94 11/09/16 07:53 11/09/16 07:53 11/09/16 07:53 11/09/16 07:53 11/09/16 07:53 Microbiology 11/06/16 14:53 Gram Stain - Final Thoracic Fluid - Aspirate 11/02/16 18:54 Blood Culture - Final Blood Laboratory Results 11/08/16 05:08 11/09/16 06:15 11/08/16 11/09/16 11/10/16 05:59 05:59 05:59 Intake Total 1530 1350 Output Total 1200 1200 Balance 330 150 PT 14.1 SEC (12.0-15.0) 11/06/16 07:19 INR 1.10 (0.83-1.16) 11/06/16 07:19 Physical Exam - Physical Exam General Appearance: alert, no apparent distress EENT: PERRL/EOMI, normal ENT inspection, pharynx normal, TMs normal Neck: non-tender, full range of motion, supple, normal inspection Respiratory: crackles (Bibasilar), No respiratory distress, No wheezing, No prolonged expiration Cardiac/Chest: normal peripheral pulses, regular rate, rhythm Peripheral Pulses: 2+: carotid (R), carotid (L), femoral (R), femoral (L), dorsalis-pedis (R), dorsalis-pedis (L) Abdomen: normal bowel sounds, non-tender, soft Male Genitalia: deferred Rectal: deferred Back: Normal inspection Skin: normal color, warm/dry Extremities: normal range of motion, non-tender, normal inspection, normal capillary refill Neuro/Psych: no motor/sensory deficits, alert, normal mood/affect, oriented x 3 ICD10 Worksheet Patient Problems: Problems Problem Status Onset Pneumonia Acute
[2016-11-09] MEDS: ENOXAPARIN 40 MG/0.4 ML SYR SC SCH (09:12)
[2016-11-09] MEDS: LORazepam 0.5 MG TAB PO PRN ×2 (09:12→20:01)
[2016-11-09] MEDS: AZITHROMYCIN 250 MG TAB PO SCH (09:12)
[2016-11-09] MEDS: guaiFENesin 600 MG TAB.ER PO SCH ×2 (09:12→20:01)
[2016-11-09] MEDS: NICOTINE 21 MG/24 HR PATCH TD SCH (09:13)
[2016-11-09] MEDS: cefTRIAXone 2 GM in D5W 50 ML IV SCH (09:13)
--- NOTE | 2016-11-09 11:58 | HOSPPROG ---
Hospitalist Progress Note Assessment/Plan: #Acute hypoxemic resp failure: -showed increased BL effusions and PNA #Severe bilateral PNA: -cont CTX, Azithro #Hemoptysis: due to PNA. Negative TB, ANCAs, PONCHO, anti-CCP, anti-GM Ag #BL pleural effusions: -left thoracentesis done 11/06 -CT shows increasing BL effusions. Order BL therapeutic thoracenteses today #Tobacco abuse: aime patch #Skin lesions: wonder if some type of bug bite? Healing, n/o cellulitis. #Diet: regular #DVT ppx: Lovenox #Disp: transfer to med-surg Subjective: less SOB this morning. Still having hemoptysis. Objective: Vital Signs Temp Pulse Resp BP Pulse Ox 36.8 C 89 14 134/93 H 93 11/09/16 07:53 11/09/16 11:12 11/09/16 11:12 11/09/16 07:53 11/09/16 11:12 Microbiology 11/06/16 14:53 Gram Stain - Final Thoracic Fluid - Aspirate 11/02/16 18:54 Blood Culture - Final Blood Laboratory Results 11/08/16 05:08 11/09/16 06:15 11/08/16 11/09/16 11/10/16 05:59 05:59 05:59 Intake Total 1530 1350 Output Total 1200 1200 Balance 330 150 PT 14.1 SEC (12.0-15.0) 11/06/16 07:19 INR 1.10 (0.83-1.16) 11/06/16 07:19 - Physical Exam Constitutional: no apparent distress Eyes: PERRL Ears, Nose, Mouth, Throat: moist mucous membranes Cardiovascular: regular rate and rhythym Respiratory: no respiratory distress Gastrointestinal: normoactive bowel sounds Genitourinary: no bladder fullness Skin: warm ICD10 Worksheet Patient Problems: Problems Problem Status Onset Pneumonia Acute
[2016-11-09] MEDS ORDERED: NA BICARBONATE 50 MEQ/50 ML VIAL ONE (13:49)
--- NOTE | 2016-11-09 17:45 | PCMIDPN ---
Assessment/Plan: Assessment: Severe pneumonia and bilateral pleural effusions. No pathogen isolated. Respiratory panel is negative for viral pathogens. Mycoplasma titers do not show recent IgM positivity. Suspect this is somehow indirectly related to his alcoholism and aspiration. Suspect oral sarmad was the inciting pathogen here despite our inability to isolated after preceding antibiotic use. Given that he is slowly improving will continue the ceftriaxone and azithromycin. Plan: 1. Continue both ceftriaxone and azithromycin. 2. Follow clinical course. Subjective: Patient is clinically significantly improved today over yesterday. He is breathing much more comfortably. He has decreased oxygen needs to 5 L O2. Still with issue of desaturations while asleep. No fevers or chills. Objective: Ceftriaxone # 3 Azithromycin # 7 Vital Signs Temp Pulse Resp BP Pulse Ox 36.8 C 91 14 116/82 H 99 11/09/16 16:00 11/09/16 17:22 11/09/16 17:22 11/09/16 16:00 11/09/16 17:22 Microbiology 11/06/16 14:53 Gram Stain - Final Thoracic Fluid - Aspirate Body Fluid Culture - Final Laboratory Results 11/08/16 05:08 11/09/16 06:15 11/08/16 11/09/16 11/10/16 05:59 05:59 05:59 Intake Total 1530 1350 1000 Output Total 1200 1200 Balance 625 846 3188 ESR 48 MM/HR (0-15) H 11/03/16 12:06 C-Reactive Protein 59.7 mg/L (<10.0) H 11/03/16 12:06 - Physical Exam General Appearance: WD/WN, alert, no apparent distress, non-toxic Respiratory: lungs clear, normal breath sounds, No respiratory distress Cardiac/Chest: regular rate, rhythm, No tachycardia Skin: normal color, warm/dry, No rash Neuro/Psych: alert, normal mood/affect, oriented x 3 ICD10 Worksheet Patient Problems: Problems Problem Status Onset Pneumonia Acute
[2016-11-09] MEDS: guaiFENesin/CODEINE PHOS 10 ML UDCUP PO PRN (20:01)
[2016-11-09] MEDS: BENZONATATE 100 MG CAP PO PRN (21:16)
[2016-11-10 05:05] LABS: HEMATOCRIT 31.7 % (40.0-51.0); HEMOGLOBIN 10.3 g/dL (13.7-17.5); MEAN CELL HEMOGLOBIN 30.8 pg (27.9-34.1); MEAN CELL HEMOGLOBIN CONCENTR. 32.5 g/dL (32.4-36.7); MEAN CELL VOLUME 94.9 fL (81.5-99.8); RED BLOOD CELL COUNT 3.34 10^6/uL (4.40-6.38)
[2016-11-10 05:12] LABS: ANION GAP 6 mEq/L (8-16); CALCIUM 8.3 mg/dL (8.5-10.4); CARBON DIOXIDE 28 mEq/l (22-31); CHLORIDE 107 mEq/L (97-110); CREATININE 0.7 mg/dL (0.7-1.3); GLOMERULAR FILTRATION RATE > 60; GLUCOSE 91 mg/dL (70-100); POTASSIUM 4.3 mEq/L (3.5-5.2); SODIUM 141 mEq/L (134-144)
[2016-11-10] MEDS: IPRATROPIUM/ALBUTEROL 3 ML DEYVIAL IH SCH ×4 (06:05→21:02)
[2016-11-10] MEDS: LORazepam 0.5 MG TAB PO PRN ×3 (06:27→23:08)
[2016-11-10] MEDS: guaiFENesin/CODEINE PHOS 10 ML UDCUP PO PRN (06:27)
[2016-11-10] MEDS: guaiFENesin 600 MG TAB.ER PO SCH ×2 (08:10→19:17)
[2016-11-10] MEDS: ENOXAPARIN 40 MG/0.4 ML SYR SC SCH (08:11)
[2016-11-10] MEDS: AZITHROMYCIN 250 MG TAB PO SCH (08:11)
[2016-11-10] MEDS: cefTRIAXone 2 GM in D5W 50 ML IV SCH (08:12)
[2016-11-10] MEDS: NICOTINE 21 MG/24 HR PATCH TD SCH (08:12)
--- NOTE | 2016-11-10 12:30 | SOAPPROG ---
SOAP Progress Note Assessment/Plan: Assessment/Plan: * Severe bilateral community-acquired pneumonia admitted 11/02, associated with hypoxemia, acute respiratory failure. -Continue on broad-spectrum antibiotics and empiric steroids. * Pleural effusions: Bilateral, secondary to the above. Status post left thoracentesis. 1300 mLs of fluid removed -consult IR for right-sided thoracentesis * Acute respiratory failure: Currently on 10 L OxyMask * History of alcoholism. In [facility] for 10 days prior to admission to [facility]. No risk for withdrawal. Remains under police surveillance. * History of tobacco abuse: No evidence of COPD or asthma. On bronchodilators. * Skin rash: Resolved * DVT prophylaxis: Enoxaparin * GI prophylaxis: Eating Subjective: Sitting up eating. Patient states he feels somewhat better. Still on high FiO2. Objective: Vital Signs Temp Pulse Resp BP Pulse Ox 37.0 C 83 20 113/66 93 11/10/16 07:50 11/10/16 07:50 11/10/16 07:50 11/10/16 07:50 11/10/16 07:50 Microbiology 11/06/16 14:53 Gram Stain - Final Thoracic Fluid - Aspirate Body Fluid Culture - Final Laboratory Results 11/10/16 04:46 11/10/16 04:46 11/09/16 11/10/16 11/11/16 05:59 05:59 05:59 Intake Total 1350 1700 Output Total 1200 Balance 150 1700 PT 14.1 SEC (12.0-15.0) 11/06/16 07:19 INR 1.10 (0.83-1.16) 11/06/16 07:19 Physical Exam - Physical Exam General Appearance: alert, no apparent distress EENT: PERRL/EOMI, normal ENT inspection, pharynx normal, TMs normal Neck: non-tender, full range of motion, supple, normal inspection Respiratory: crackles, No respiratory distress, No stridor, No wheezing Cardiac/Chest: normal peripheral pulses, regular rate, rhythm Peripheral Pulses: 2+: carotid (R), carotid (L), femoral (R), femoral (L), dorsalis-pedis (R), dorsalis-pedis (L) Abdomen: normal bowel sounds, non-tender, soft Male Genitalia: deferred Rectal: deferred Skin: normal color, warm/dry Lymphatic: no adenopathy Extremities: normal range of motion, non-tender, normal inspection, normal capillary refill ICD10 Worksheet Patient Problems: Problems Problem Status Onset Pneumonia Acute
[2016-11-10] MEDS ORDERED: LIDOCAINE 1% 30 ML SDV ONE (12:34)
[2016-11-10] MEDS ORDERED: NA BICARBONATE 50 MEQ/50 ML VIAL ONE (12:34)
--- NOTE | 2016-11-10 13:03 | HOSPPROG ---
Hospitalist Progress Note Assessment/Plan: 31y male with c/o SOB. This is my first encounter. Chart reviewed. D/W Dr Pcikens. Assessment/Plan: * Severe bilateral community-acquired pneumonia admitted 11/02, associated with hypoxemia, acute respiratory failure. -Continue on broad-spectrum antibiotics and empiric steroids. - CTX and Azithro -appreciate ID and pulm * Pleural effusions: Bilateral, secondary to the above. - Status post left thoracentesis. 1300 mLs of fluid removed -consult IR for right-sided thoracentesis * Hemoptysis: due to PNA. -Negative TB, ANCAs, PONCHO, anti-CCP, anti-GM Ag * Acute respiratory failure: Currently on 10 L OxyMask * History of alcoholism. In alf for 10 days prior to admission to [facility]. No risk for withdrawal. Remains under police surveillance. * History of tobacco abuse: No evidence of COPD or asthma. On bronchodilators. * Skin rash: Resolved * DVT prophylaxis: Enoxaparin * GI prophylaxis: Eating * Dispo: -Unclear given need for further intervention Subjective: Feeling ok. Very tired. No pain currently. Objective: Vital Signs Temp Pulse Resp BP Pulse Ox 37.0 C 83 20 113/66 93 11/10/16 07:50 11/10/16 07:50 11/10/16 07:50 11/10/16 07:50 11/10/16 07:50 Microbiology 11/06/16 14:53 Gram Stain - Final Thoracic Fluid - Aspirate Body Fluid Culture - Final Laboratory Results 11/10/16 04:46 11/10/16 04:46 11/09/16 11/10/16 11/11/16 05:59 05:59 05:59 Intake Total 1350 1700 Output Total 1200 Balance 150 1700 PT 14.1 SEC (12.0-15.0) 11/06/16 07:19 INR 1.10 (0.83-1.16) 11/06/16 07:19 - Physical Exam Constitutional: not in pain, chronically ill appearing, unkempt Eyes: PERRL, anicteric sclera, EOMI Ears, Nose, Mouth, Throat: moist mucous membranes, hearing normal, ears appear normal Cardiovascular: No JVD, No tachycardia, No edema Respiratory: no respiratory distress, reduced air movement, rhonchi Gastrointestinal: No tenderness, No ascites, No guarding Skin: warm, normal color, No mottled Musculoskeletal: normal joint ROM, no joint effusions, generalized weakness Neurologic: AAOx3 Psychiatric: interacting appropriately, not anxious, not encephalopathic ICD10 Worksheet Patient Problems: Problems Problem Status Onset Pneumonia Acute
--- NOTE | 2016-11-10 15:45 | PCMIDPN ---
Assessment/Plan: Assessment: Severe pneumonia and bilateral pleural effusions. No pathogen isolated. Respiratory panel is negative for viral pathogens. Suspect this is somehow indirectly related to his alcoholism and aspiration. Suspect oral sarmad was the inciting pathogen here despite our inability to isolated after preceding antibiotic use. Plan to continue both the ceftriaxone and azithromycin. Plans are to do a therapeutic thoracentesis of the right side later today. Plan: 1. Continue both ceftriaxone and azithromycin. 2. Follow clinical course. 11/10/16 15:42 Subjective: Patient is resting in his hospital bed. He states that he had approximately 0.5 L of fluid taken from his left chest yesterday. Breathing somewhat better. But still desats into the 80s while sleeping. No fevers or chills. Objective: Ceftriaxone # 4 Azithromycin # 8 Vital Signs Temp Pulse Resp BP Pulse Ox 37.0 C 90 18 113/66 91 L 11/10/16 07:50 11/10/16 12:53 11/10/16 12:53 11/10/16 07:50 11/10/16 12:53 Microbiology 11/06/16 14:53 Gram Stain - Final Thoracic Fluid - Aspirate Body Fluid Culture - Final Laboratory Results 11/10/16 04:46 11/10/16 04:46 11/09/16 11/10/16 11/11/16 05:59 05:59 05:59 Intake Total 1350 1700 250 Output Total 1200 Balance 150 1700 250 ESR 48 MM/HR (0-15) H 11/03/16 12:06 C-Reactive Protein 59.7 mg/L (<10.0) H 11/03/16 12:06 - Physical Exam General Appearance: WD/WN, alert, no apparent distress, thin, non-toxic Respiratory: lungs clear, normal breath sounds (Decreased breath sounds at right base.) Cardiac/Chest: regular rate, rhythm, No tachycardia Skin: normal color, warm/dry, No rash Neuro/Psych: alert, normal mood/affect, oriented x 3 ICD10 Worksheet Patient Problems: Problems Problem Status Onset Pneumonia Acute
[2016-11-10] MEDS: BENZONATATE 100 MG CAP PO PRN (19:17)
[2016-11-10] MEDS: ACETAMINOPHEN 325 MG TAB PO PRN (23:08)
[2016-11-11] MEDS: IPRATROPIUM/ALBUTEROL 3 ML DEYVIAL IH SCH ×4 (05:34→21:29)
[2016-11-11] MEDS: ACETAMINOPHEN 325 MG TAB PO PRN (06:11)
[2016-11-11] MEDS: LORazepam 0.5 MG TAB PO PRN ×3 (06:14→22:37)
[2016-11-11] MEDS: cefTRIAXone 2 GM in D5W 50 ML IV SCH (09:59)
[2016-11-11] MEDS: guaiFENesin 600 MG TAB.ER PO SCH ×2 (09:59→20:32)
[2016-11-11] MEDS: AZITHROMYCIN 250 MG TAB PO SCH (09:59)
[2016-11-11] MEDS: ENOXAPARIN 40 MG/0.4 ML SYR SC SCH (09:59)
[2016-11-11] MEDS: NICOTINE 21 MG/24 HR PATCH TD SCH (10:30)
--- NOTE | 2016-11-11 11:50 | SOAPPROG ---
SOAP Progress Note Assessment/Plan: Assessment/Plan: * Severe bilateral community-acquired pneumonia admitted 11/02, associated with hypoxemia. Markedly improved -Continue on broad-spectrum antibiotics and empiric steroids. * Pleural effusions: Bilateral, secondary to the above. Status post left thoracentesis. 1300 mLs of fluid removed * Acute respiratory failure: Currently on room air * History of alcoholism. In [place] [facility] for 10 [facility] prior to admission to [facility]. No risk for withdrawal. Remains under police surveillance. * History of tobacco abuse: No evidence of COPD or asthma. On bronchodilators. * Skin rash: Resolved * DVT prophylaxis: Enoxaparin * GI prophylaxis: Eating Subjective: Looks and feels markedly improved. He is less breathless. He is currently on room air Objective: Vital Signs Temp Pulse Resp BP Pulse Ox 36.9 C 74 14 107/71 95 11/10/16 23:02 11/11/16 11:08 11/11/16 11:08 11/10/16 23:02 11/11/16 11:08 Laboratory Results 11/10/16 04:46 11/10/16 04:46 11/10/16 11/11/16 11/12/16 05:59 05:59 05:59 Intake Total 1700 950 Balance 1700 950 PT 14.1 SEC (12.0-15.0) 11/06/16 07:19 INR 1.10 (0.83-1.16) 11/06/16 07:19 Physical Exam - Physical Exam General Appearance: alert, no apparent distress EENT: PERRL/EOMI, normal ENT inspection, pharynx normal, TMs normal Neck: non-tender, full range of motion, supple, normal inspection Respiratory: crackles (Few basilar), No respiratory distress, No stridor, No wheezing Cardiac/Chest: normal peripheral pulses, regular rate, rhythm Peripheral Pulses: 2+: carotid (R), carotid (L), femoral (R), femoral (L), dorsalis-pedis (R), dorsalis-pedis (L) Abdomen: normal bowel sounds, non-tender, soft Male Genitalia: deferred Rectal: deferred Skin: normal color, warm/dry Neuro/Psych: no motor/sensory deficits, alert, normal mood/affect, oriented x 3 ICD10 Worksheet Patient Problems: Problems Problem Status Onset Pneumonia Acute
--- NOTE | 2016-11-11 13:42 | HOSPPROG ---
Hospitalist Progress Note Assessment/Plan: 31y male with c/o SOB. Assessment/Plan: * Severe bilateral community-acquired pneumonia admitted 11/02, associated with hypoxemia, acute respiratory failure. -Continue on broad-spectrum antibiotics and empiric steroids. - CTX and Azithro -appreciate ID and pulm * Pleural effusions: Bilateral, secondary to the above. - B taps done - Breathing better today * Hemoptysis: due to PNA. -Negative TB, ANCAs, PONCHO, anti-CCP, anti-GM Ag * Acute respiratory failure: Currently on 10 L OxyMask * History of alcoholism. In alf for 10 days prior to admission to [facility]. No risk for withdrawal. Remains under police surveillance. * History of tobacco abuse: No evidence of COPD or asthma. On bronchodilators. * Skin rash: Resolved * DVT prophylaxis: Enoxaparin * GI prophylaxis: Eating * Dispo: -Unclear given need for further intervention - Return to alf at time of DC Subjective: Feeling better today. Breathing easier. No pain. Objective: Vital Signs Temp Pulse Resp BP Pulse Ox 36.9 C 74 14 107/71 95 11/10/16 23:02 11/11/16 11:08 11/11/16 11:08 11/10/16 23:02 11/11/16 11:08 Laboratory Results 11/10/16 04:46 11/10/16 04:46 11/10/16 11/11/16 11/12/16 05:59 05:59 05:59 Intake Total 1700 950 Balance 1700 950 PT 14.1 SEC (12.0-15.0) 11/06/16 07:19 INR 1.10 (0.83-1.16) 11/06/16 07:19 ICD10 Worksheet Patient Problems: Problems Problem Status Onset Pneumonia Acute
--- NOTE | 2016-11-11 17:54 | PCMIDPN ---
Assessment/Plan: Assessment: Severe pneumonia and bilateral pleural effusions. No pathogen isolated. Respiratory panel is negative for viral pathogens. Suspect this is somehow indirectly related to his alcoholism and aspiration. Suspect oral sarmad was the inciting pathogen here despite our inability to isolated after preceding antibiotic use. Plan to continue both the ceftriaxone and azithromycin. His oxygenation is significantly improved after bilateral thoracentesis over the past 2 days. However he is not oxygenating sufficiently to be discharged back to custody of retirement. Plan: 1. Continue both ceftriaxone and azithromycin. 2. Follow clinical course. 11/10/16 15:42 11/11/16 17:52 Subjective: Patient is resting in his hospital bed. He denies any new complaints. States he feels that he can breathe easier since the thoracentesis yesterday. No new fevers or chills. No rash. Objective: Ceftriaxone # 5 Azithromycin # 9 Vital Signs Temp Pulse Resp BP Pulse Ox 36.9 C 84 16 118/72 90 L 11/11/16 16:30 11/11/16 17:09 11/11/16 16:30 11/11/16 16:30 11/11/16 17:09 Laboratory Results 11/10/16 04:46 11/10/16 04:46 11/10/16 11/11/16 11/12/16 05:59 05:59 05:59 Intake Total 1700 950 Balance 1700 950 ESR 48 MM/HR (0-15) H 11/03/16 12:06 C-Reactive Protein 59.7 mg/L (<10.0) H 11/03/16 12:06 - Physical Exam General Appearance: WD/WN, alert, no apparent distress, non-toxic Respiratory: lungs clear, normal breath sounds, No respiratory distress Cardiac/Chest: regular rate, rhythm, No tachycardia Extremities: non-tender, normal inspection Skin: normal color, warm/dry, No rash Neuro/Psych: alert, normal mood/affect, oriented x 3 ICD10 Worksheet Patient Problems: Problems Problem Status Onset Pneumonia Acute
[2016-11-11] MEDS: BENZONATATE 100 MG CAP PO PRN (20:32)
[2016-11-12] MEDS: IPRATROPIUM/ALBUTEROL 3 ML DEYVIAL IH SCH ×4 (05:09→22:47)
[2016-11-12] MEDS: ACETAMINOPHEN 325 MG TAB PO PRN (06:34)
[2016-11-12] MEDS: LORazepam 0.5 MG TAB PO PRN ×3 (06:34→23:00)
[2016-11-12] MEDS: guaiFENesin 600 MG TAB.ER PO SCH ×2 (10:04→20:56)
[2016-11-12] MEDS: AZITHROMYCIN 250 MG TAB PO SCH (10:04)
[2016-11-12] MEDS: ENOXAPARIN 40 MG/0.4 ML SYR SC SCH (10:05)
[2016-11-12] MEDS: cefTRIAXone 2 GM in D5W 50 ML IV SCH (10:07)
[2016-11-12] MEDS: NICOTINE 21 MG/24 HR PATCH TD SCH (10:14)
--- NOTE | 2016-11-12 11:36 | HOSPPROG ---
Hospitalist Progress Note Assessment/Plan: 31-y/o M with alcohol use, admitted from [facility] due to hemoptysis on DOA. Was incarcerated for 10 days and was noting worsening shortness of breath and F/C. PMH of tobacco abuse. * Severe bilateral community-acquired pneumonia admitted 11/02, associated with hypoxemia, acute respiratory failure. -Continue on broad-spectrum antibiotics and empiric steroids. - CTX and Azithro -appreciate ID and pulm * Pleural effusions: Bilateral, secondary to parapneumonic processes - B taps done on 11/04 and 11/06 and again 11/09 and 11/10 - Breathing better today * Hemoptysis: due to PNA. -Negative TB, ANCAs, PONCHO, anti-CCP, anti-GM Ag * Cardiomyopathy: EF 40-45% on echo with severe PHTN - likely 2/2 illness/ however will start low-dose Coreg - pt advised on repeat echo in 90 days -check ECG for mild anteroseptal HK noted on echo - No e/o vol o/l on physical exam * Acute respiratory failure: Currently satting on RA but has been on RA for less than 24 hours * History of alcoholism. In detention for 10 days prior to admission to [facility]. No risk for withdrawal. Remains under police surveillance. * History of tobacco abuse: No evidence of COPD or asthma. On bronchodilators. * Skin rash: Resolved * DVT prophylaxis: Enoxaparin * GI prophylaxis: Eating * Dispo: -Likely D/C tomorrow - Return to detention at time of DC Subjective: Reports breathing improved. No cp or palps. Objective: Vital Signs Temp Pulse Resp BP Pulse Ox 97.9 F 88 14 117/84 H 93 11/12/16 07:48 11/12/16 09:48 11/12/16 09:48 11/12/16 07:48 11/12/16 09:48 Laboratory Results 11/10/16 04:46 11/10/16 04:46 11/11/16 11/12/16 11/13/16 05:59 05:59 05:59 Intake Total 950 2300 Balance 950 2300 PT 14.1 SEC (12.0-15.0) 11/06/16 07:19 INR 1.10 (0.83-1.16) 04/10/17 07:19 - Physical Exam Constitutional: no apparent distress, appears nourished Eyes: PERRL Ears, Nose, Mouth, Throat: moist mucous membranes, hearing normal Cardiovascular: regular rate and rhythym, no murmur, rub, or gallop Respiratory: no respiratory distress, reduced air movement, No expiratory wheeze , No inspiratory crackles Genitourinary: no bladder fullness Skin: warm, normal color Psychiatric: interacting appropriately, not anxious ICD10 Worksheet Patient Problems: Problems Problem Status Onset Pneumonia Acute
--- NOTE | 2016-11-12 11:51 | PCMIDPN ---
Assessment/Plan: Assessment: Severe pneumonia and bilateral pleural effusions. No pathogen isolated. Respiratory panel is negative for viral pathogens. Suspect this is somehow indirectly related to his alcoholism and aspiration. Suspect oral sarmad was the inciting pathogen here despite our inability to isolated after preceding antibiotic use. Patient has made further improvement on his oxygen requirements. He will likely be able to discharge tomorrow on some oral antibiotics such as Augmentin to complete a 10 day total course. Plan: 1. Continue both ceftriaxone and azithromycin. Discharge on Augmentin 875 mg p.o. twice daily. 10 day duration. 2. Follow clinical course. Subjective: Patient is resting in his hospital bed without need for supplemental oxygen. Pulse ox in the low 90s. No fevers or chills. Patient states that he is breathing better and feeling better. Objective: Ceftriaxone # 6 Azithromycin # 10 Vital Signs Temp Pulse Resp BP Pulse Ox 36.6 C 88 14 117/84 H 93 11/12/16 07:48 11/12/16 09:48 11/12/16 09:48 11/12/16 07:48 11/12/16 09:48 Laboratory Results 11/10/16 04:46 11/10/16 04:46 11/11/16 11/12/16 11/13/16 05:59 05:59 05:59 Intake Total 950 2300 Balance 950 2300 ESR 48 MM/HR (0-15) H 11/03/16 12:06 C-Reactive Protein 59.7 mg/L (<10.0) H 11/03/16 12:06 - Physical Exam General Appearance: WD/WN, alert, no apparent distress, non-toxic Respiratory: lungs clear, normal breath sounds, No respiratory distress Cardiac/Chest: regular rate, rhythm, No tachycardia Skin: normal color, warm/dry, No rash Neuro/Psych: alert, normal mood/affect, oriented x 3 ICD10 Worksheet Patient Problems: Problems Problem Status Onset Pneumonia Acute
--- NOTE | 2016-11-12 11:53 | CPEKG ---
Heart Rate: 87 RR Interval: 690 P-R Interval: 140 QRSD Interval: 82 QT Interval: 412 QTC Interval: 496 P Melrose: 71 QRS Melrose: 73 T Wave Melrose: 138 EKG Severity - ABNORMAL ECG - EKG Impression: SINUS RHYTHM EKG Impression: PROLONGED QT INTERVAL Electronically Signed By: Deandre Gomez 13-Nov-2016 09:04:22
[2016-11-12] MEDS: CARVEDILOL 3.125 MG TAB PO SCH (18:27)
[2016-11-13] MEDS: IPRATROPIUM/ALBUTEROL 3 ML DEYVIAL IH SCH ×2 (05:18→10:59)
[2016-11-13 05:21] VITALS: RESP 16
[2016-11-13 08:02] VITALS: BP 115/74; TEMP 98.2
[2016-11-13] MEDS: cefTRIAXone 2 GM in D5W 50 ML IV SCH (08:41)
[2016-11-13] MEDS: CARVEDILOL 3.125 MG TAB PO SCH (08:44)
[2016-11-13] MEDS: ENOXAPARIN 40 MG/0.4 ML SYR SC SCH (08:44)
[2016-11-13] MEDS: NICOTINE 21 MG/24 HR PATCH TD SCH (08:45)
[2016-11-13] MEDS: guaiFENesin 600 MG TAB.ER PO SCH (08:45)
[2016-11-13] MEDS: AZITHROMYCIN 250 MG TAB PO SCH (08:45)
[2016-11-13] MEDS: LORazepam 0.5 MG TAB PO PRN (08:54)
[2016-11-13] MEDS ORDERED: ASPIRIN 81 MG CHEWABLE TAB PO SCH (09:00)
[2016-11-13 11:09] VITALS: PULSE 77; O2SAT 95
--- NOTE | 2016-11-13 11:16 | HOSPPROG ---
Hospitalist Progress Note Assessment/Plan: 31-y/o M with alcohol use, admitted from [facility] due to hemoptysis on DOA. Was incarcerated for 10 days and was noting worsening shortness of breath and F/C. PMH of tobacco abuse. Today is my first encounter with the patient/ chart reviewed/ Discussed his care with Dr Mitchell who is recommending he be dc on ceftin x 10 days. He is allergic to PCN so will avoid augmentin. * Severe bilateral community-acquired pneumonia admitted 11/02, associated with hypoxemia, acute respiratory failure. -Continue on broad-spectrum antibiotics and empiric steroids. - CTX and Azithro -dc on Ceftin * Pleural effusions: Bilateral, secondary to parapneumonic processes - B taps done on 11/04 and 11/06 and again 11/09 and 11/10 - Breathing better today * Hemoptysis: due to PNA. -Negative TB, ANCAs, PONCHO, anti-CCP, anti-GM Ag * Cardiomyopathy: EF 40-45% on echo with severe PHTN - likely 2/2 illness/ however will start low-dose Coreg - pt advised on repeat echo in 90 days * Acute respiratory failure: stable on room air * History of alcoholism. In intermediate for 10 days prior to admission to [facility]. * * History of tobacco abuse: No evidence of COPD or asthma. On bronchodilators. * Skin rash: Resolved * DVT prophylaxis: Enoxaparin * GI prophylaxis: Eating * Dispo:dc today Subjective: Yeyo is feeling better/ motivated to take better care of himself. Objective: Vital Signs Temp Pulse Resp BP Pulse Ox 36.8 C 77 16 115/74 95 11/13/16 08:00 11/13/16 11:02 11/13/16 11:02 11/13/16 08:00 11/13/16 11:02 Laboratory Results 11/10/16 04:46 11/10/16 04:46 11/12/16 11/13/16 11/14/16 05:59 05:59 05:59 Intake Total 2300 1100 55 Balance 2300 1100 55 PT 14.1 SEC (12.0-15.0) 11/06/16 07:19 INR 1.10 (0.83-1.16) 11/06/16 07:19 - Physical Exam Constitutional: no apparent distress, appears nourished, not in pain Eyes: PERRL Ears, Nose, Mouth, Throat: hearing normal Cardiovascular: regular rate and rhythym Respiratory: no respiratory distress, reduced air movement (bibasilar) Gastrointestinal: normoactive bowel sounds Skin: warm, No normal color (pale) Musculoskeletal: full muscle strength Neurologic: AAOx3 Psychiatric: interacting appropriately, not anxious ICD10 Worksheet Patient Problems: Problems Problem Status Onset Pneumonia Acute
--- NOTE | 2016-11-13 11:42 | PDIAF ---
- Diagnosis Diagnosis: severe pna w bilateral effusions/ cardiomyopathy Code Status: Full Code - Medication Management Discharge Medications: Medications to Continue on Transfer Ibuprofen [Motrin (*)] 800 mg PO BID PRN 11/02/16 [Last Taken Unknown] Albuterol [Proventil Inhaler HFA (*)] 2 puffs IH Q4HRS PRN #1 mdi 11/13/16 [ Last Taken Unknown] Aspirin [Aspirin 81mg (*)] 81 mg PO DAILY #0 tab.chew 11/13/16 [Last Taken Unknown] Carvedilol [Coreg (*)] 3.125 mg PO BIDMEAL #30 tab 11/13/16 [Last Taken Unknown] Cefuroxime Axetil [Ceftin (*)] 500 mg PO BID #20 tab 11/13/16 [Last Taken Unknown] guaiFENesin [Mucinex 600 MG (*)] 1,200 mg PO BID #0 tab.er 11/13/16 [Last Taken Unknown] Discharge Medications: Refer to the Discharge Home Medication list for PRN reason. - Orders Diet Recommendation: no restrictions on diet Diet Texture: Regular Texture Diet Additional: you are on the coreg to help protect your heart/ you need an echo in 3 months for f/u care. Get a repeat chest xray in 6 weeks to be assured resolution of the pneumonia. - Follow Up Care Current Providers and Referrals: Patient,NotPresent [Unknown] - As per Instructions
--- NOTE | 2016-11-13 14:02 | GDS ---
[f rep st] DISCHARGE SUMMARY DISCHARGE DIAGNOSES: 1. Severe bilateral community-acquired pneumonia with associated hypoxemia and respiratory failure. 2. Bilateral pleural effusions. 3. Hemoptysis. 4. Cardiomyopathy with an EF of 40% to 45%. 5. Acute respiratory failure. 6. History of alcoholism and abuse. 7. History of tobacco abuse. 8. Skin rash. CONSULTATIONS DURING STAY: 1. Austyn Purcell MD. 2. Roseanna Guerrero MD. 3. AUSTIN Cm. BRIEF HISTORY: The patient is a 31-year-old male, who has been incarcerated prior to his admission. He presented to the emergency room with severe shortness of breath that had been progressive over several days prior to this admission. He was seen in the emergency room and had a CT of his chest, which showed no thromboembolic disease, but multifocal bilateral pneumonia. He was subsequently seen and evaluated by the infectious disease team to help manage his pneumonia and hemoptysis. He was treated with IV antibiotics. It was also noted during his stay that he had bilateral pleural effusions. He had a right thoracentesis, 1400 mL of fluid removed on November 04. On November 05, he had an attempted thoracentesis for the left-sided pleural effusion. No fluid was obtained at that time. An echocardiogram was performed during his stay, which showed that his EF was 40% to 45% with mild anteroseptal hypokinesis. He was started on Coreg and the recommendation is for him to get a further echocardiogram in the future. He was also seen by Azeb Olsen for penile and scrotal swelling. It was noted at that time that this was probably most likely related to being overloaded with fluids. Throughout his stay, he slowly improved. Today, he will be discharged back to the longterm. I reviewed his echocardiogram with him and the importance of followup, as well as getting a repeat chest x-ray. HOSPITAL COURSE PER PROBLEM: 1. Severe bilateral community-acquired pneumonia with associated hypoxemia and acute respiratory failure. He was treated with ceftriaxone and azithromycin. He will be discharged on Ceftin. 2. Pleural effusions. He has had multiple taps done. His lung sounds are clear, but diminished. 3. Hemoptysis. This is secondary to pneumonia. He is negative for tuberculosis. 4. Cardiomyopathy with an EF of 40% to 45%, with severe pulmonary hypertension. This is likely secondary to his illness. He was started on low- dose Coreg. He will need repeat echo to make sure this is improved. 5. Acute respiratory failure, resolved. 6. Alcoholism. He is in the longterm for this. 7. History of tobacco abuse. He has no evidence of COPD or asthma. 8. Skin rash, resolved. PENDING LABS AND TESTS: None. CONDITION AT DISCHARGE: Stable. VITAL SIGNS: Blood pressure is 115/74, heart rate is 87, respiratory rate is 16 , O2 sats on room air 94%, temperature is 36.8 Celsius. MEDICATIONS AT DISCHARGE: Please see the EMR. DISCHARGE INSTRUCTIONS: 1. I have recommended that he needs to get a followup appointment and line up primary care. I have recommended [facility] once he finishes his time in the longterm. Will need repeat Echo and follow up chest xray. 2. To stop all alcohol use and all nicotine dependence. It is affecting his health. 3. If he develops fever, chills, worsening shortness of breath, return to the ER. Greater than 30 minutes discharging and coordinating care. /[id number]/MODL MTDD
== END 2016-11-13 13:04 | DRG 193 ==
LOC: EDUNIT# → EEVIPCON 15:07 → F1N 16:46 → F2N 22:53 → F3N 11-09 19:49
PROVIDERS: ADMIT Hospitalist; ATTEND Internal Medicine Pulmonary Disease
PROC: 0B9N3ZZ Drainage of Right Pleura, Percutaneous Approach (ICD-10-PCS; principal; 2016-11-04)
PROC: 0B9P3ZX Drainage of Left Pleura, Percutaneous Approach, Diagnostic (ICD-10-PCS; 2016-11-05)
PROC: 0B9P3ZZ Drainage of Left Pleura, Percutaneous Approach (ICD-10-PCS; 2016-11-06)
PROC: BB4BZZZ Ultrasonography of Pleura (ICD-10-PCS; 2016-11-06)
PROC: 0B9P3ZZ Drainage of Left Pleura, Percutaneous Approach (ICD-10-PCS; 2016-11-09)
PROC: BB4BZZZ Ultrasonography of Pleura (ICD-10-PCS; 2016-11-09)
PROC: BB4BZZZ Ultrasonography of Pleura (ICD-10-PCS; 2016-11-10)
PROC: 0B9N3ZZ Drainage of Right Pleura, Percutaneous Approach (ICD-10-PCS; 2016-11-10)
DX: J18.9 Pneumonia, unspecified organism (principal); J96.01 Acute respiratory failure with hypoxia; J90 Pleural effusion, not elsewhere classified; R04.2 Hemoptysis; I42.9 Cardiomyopathy, unspecified; I27.2 Other secondary pulmonary hypertension; N48.89 Other specified disorders of penis; L08.9 Local infection of the skin and subcutaneous tissue, unspecified; F17.210 Nicotine dependence, cigarettes, uncomplicated; F10.20 Alcohol dependence, uncomplicated; B95.61 Methicillin susceptible Staphylococcus aureus infection as the cause of diseases classified elsewhere; Z81.1 Family history of alcohol abuse and dependence
CPT/HCPCS: 82164-90; 82947-QW; 83520-90; 86255-90; 86738-90; 87449-90; J0456; J0692; J0696; J1650; J2405; J3370; Q9967